=== PATIENT | female | born 1955 | race Caucasian/White ===

== ENCOUNTER 2018-04-06 13:36 | Day surgery (SDC) | payer OTHER, SELFPAY ==
[2018-04-06 14:15] VITALS: BMI 22.7
[2018-04-06] MEDS: SODIUM CHLORIDE 0.9% 1,000 ML 200 ML IV (14:41)
--- NOTE | 2018-04-06 14:42 | SUR.PREOP ---
iv placement per pt request.
[2018-04-06 14:43] VITALS: BP 118/79; PULSE 91; RESP 15; TEMP 36.5; O2SAT 99
--- NOTE | 2018-04-06 15:23 | PM.HP.1 ---
History of Present Illness Date Patient Seen: 04/06/18 Time Patient Seen: 15:23 Chief complaint: [id number] SCREENING COLONOSCOPY Narrative: Very pleasant 62-year-old lady here for her 2nd colonoscopy. She reports her 1st one was about 5 years ago. At that time she was diagnosed with a few benign polyps. She was advised to have a repeat in 5 years and so she is here to do that today. She denies any nausea. She reports the prep went well. She denies any abdominal pain Patient History Medical History Chronic back pain greater than 3 months duration (Chronic 10/09/17) Malignant neoplasm of nipple of right breast in female, estrogen receptor positive (Chronic 10/09/17) Recurrent major depressive disorder, in full remission (Chronic 10/09/17) Anxiety (Chronic 11/27/17) Essential hypertension (Chronic 11/27/17) Gastroesophageal reflux disease without esophagitis (Chronic 11/27/17) History of deep venous thrombosis (Chronic 11/27/17) Migraine without status migrainosus, not intractable (Chronic 11/27/17) Primary insomnia (Chronic 11/27/17) Pure hypercholesterolemia (Chronic 11/27/17) Seasonal allergic rhinitis (Chronic 11/27/17) Uncomplicated opioid dependence (Chronic 11/27/17) Type 2 diabetes mellitus without complication, without long-term current use of insulin (Chronic 11/27/17) Allergic rhinitis (Chronic Unknown) Anxiety (Chronic 2008) Chronic back pain (Chronic 1989) Depression (Chronic 1983) Diabetes (Chronic 2007) GERD (gastroesophageal reflux disease) (Chronic 1994) Herpes (Chronic 1978) Hypercholesterolemia (Chronic Unknown) Hypertension (Chronic 1994) Migraines (Chronic 1977) Vertigo (Chronic 2011) Abnormal Pap smear of cervix (Resolved 1999) Acne (Resolved Unknown) Breast cancer (Resolved 2000) Chickenpox (Resolved Unknown) DVT (deep venous thrombosis) (Resolved 2010) Mumps (Resolved Unknown) Shoulder pain (Resolved 2005) Surgical History History of hip surgery (Resolved 09/2014) Hx of appendectomy (Resolved 01/2008) Hx of breast surgery (Resolved 09/2001) Hx of cholecystectomy (Resolved 02/2010) Hx of shoulder surgery (Resolved 09/2005) Family & Social History Tobacco & Substance use: Smoking Status Never smoker Meds Home Medications Medication Instructions Recorded Confirmed Type [B-D UF 3 MINI PEN NE] #0 10/09/17 02/04/18 History [BIOTIN] #0 10/09/17 02/04/18 History [MILK THISTLE] #0 10/09/17 02/04/18 History [free style lite] TID #0 10/09/17 02/04/18 History alprazolam 0.5 mg PO Q DAY PRN PRN #0 10/09/17 04/06/18 History anastrozole 1 mg PO QDAY #0 10/09/17 04/06/18 History aspirin 81 mg PO QDAY #0 10/09/17 04/06/18 History atorvastatin [Lipitor] 10 mg PO HS #0 10/09/17 04/06/18 History bupropion HCl [Wellbutrin XL] 150 mg PO QDAY #0 10/09/17 04/06/18 History cholecalciferol (vitamin D3) 5,000 unit PO DAILY #0 10/09/17 04/06/18 History cyclobenzaprine 10 mg PO BID PRN #30 tab 10/09/17 04/06/18 Rx exenatide microspheres [Bydureon] 2 mg SQ WEEKLY #0 10/09/17 04/06/18 History fenofibrate nanocrystallized 1 tab PO QDAY #90 tab 10/09/17 04/06/18 Rx [Tricor] ferrous sulfate [Iron (ferrous 325 mg PO QDAY #0 10/09/17 04/06/18 History sulfate)] gabapentin [Neurontin] 600 mg PO DAILY #0 10/09/17 04/06/18 History lisinopril-hydrochlorothiazide 1 tab PO QDAY #0 10/09/17 04/06/18 History metformin 1,000 mg PO BIDCC #0 10/09/17 04/06/18 History multivitamin [Multiple Vitamins] 1 tab PO QDAY #0 10/09/17 04/06/18 History risperidone [Risperdal] 0.5 mg PO BID #180 tab 10/09/17 04/06/18 Rx sumatriptan succinate [Imitrex] 25 mg PO TID #0 10/09/17 04/06/18 History venlafaxine 75 mg PO BID #180 tab 10/09/17 04/06/18 Rx vitamin B complex [B 1 tab PO QDAY #0 02/23/18 08/21/18 History Complex-Vitamin B12] zolpidem 1 tab PO HSP PRN #30 tab 10/09/17 04/06/18 Rx oxycodone 5 mg tablet 5 mg PO TID PRN #90 tab 02/04/18 04/06/18 Rx ondansetron 4 mg SUBLINGUAL Q8HP PRN 04/06/18 04/06/18 History Allergies Allergy/AdvReac Type Severity Reaction Status Date / Time Sulfa (Sulfonamide Allergy Severe Hives Verified 04/06/18 14:06 Antibiotics) [SULFA (SULFONAMIDE ANTIBIOTICS)] niacin [NIACIN] Allergy Intermediate Verified 04/06/18 14:06 naproxen [NAPROXEN] Allergy Mild crusty rash Verified 04/06/18 14:06 Penicillins [PENICILLINS] Allergy Unknown Verified 04/06/18 14:06 sulfamethoxazole Allergy Unknown Verified 04/06/18 14:06 [From BACTRIM] trimethoprim [From BACTRIM] Allergy Unknown Verified 04/06/18 14:06 flu vaccine Allergy Severe tongue Uncoded 04/06/18 14:06 swelling peanuts Allergy Unknown tongue Uncoded 04/06/18 14:06 swelling Review of Systems Review of Systems All systems reviewed & are unremarkable except as noted in HPI and below Exam Vital Signs (past 8 hours): - 04/06/18 14:43 Temperature 97.7 F Pulse Rate 91 H Respiratory Rate 15 Blood Pressure 118/79 Pulse Oximetry 99 Oxygen Delivery Method Room Air Narrative Exam Narrative: Pleasant 62-year-old lady in no obvious distress HEENT: Normocephalic and atraumatic, pupils equal round reactive to light accommodation with anicteric sclera Lungs: Clear to auscultation bilaterally Heart: Regular rate and rhythm without murmur rub or gallop Abdomen: Soft, nontender, active bowel sounds Extremities: Warm well perfused without edema Assessment & Plan Plan: Assessment/Plan Narrative: Pleasant lady with multiple underlying medical problems including diabetes and history of cancer and DVT who presents for a screening colonoscopy due to a personal history of polyps. The above was discussed the risks and benefits of the procedure and the patient has expressed desire to complete it today
[2018-04-06] MEDS: MIDAZOLAM 5 MG/5 ML VIAL IV (15:51)
[2018-04-06] MEDS: fentaNYL 250 MCG/5 ML INJ IV (15:52)
--- NOTE | 2018-04-06 16:01 | PM.OP.1 ---
Operative Date/Time/Diagnoses Date of procedure: 04/06/18 Time of procedure: 16:01 Pre-op diagnosis: Screening Personal history of colon polyps Post-op diagnosis: same Procedure & Clinicians Procedure: Colonoscopy to the cecum Same procedure as scheduled: Yes Indications: Last colonoscopy 5 years ago Surgeon: Lesvia Castro Click Yes if Unassisted: Yes Anesthesia Type: Sedation (Versed 6 mg; fentanyl 200 mcg) Operative Notes Findings: 1. Adequate prep 2. Very tortuous and redundant colon 3. Minimal diverticulosis limited to the sigmoid region 4. No polyps, masses, or AV malformations 5. Grade 1-2 internal hemorrhoids Closure Type: not applicable Specimen(s): none sent Procedure in detail: After obtaining informed consent, the patient was brought to the GI suite and placed in the left lateral decubitus position on the examination table. After placement of appropriate monitors, the patient was given incremental doses of Versed and Fentanyl until an appropriate level of sedation was achieved. A time out was held per SCOAP protocol. A digital rectal examination was performed and did not reveal any masses or obstructing lesions. The colonoscope was gently passed into the patient's anus and the entire colon navigated to the level of the cecum with minimal difficulty. Once in the cecum, the scope was withdrawn being sure to go before and beyond all mucosal folds and prominences and get an excellent examination. The findings are noted above. At the level of the rectal vault, the scope was retroflexed and the internal anal canal was examined. The scope was straightened and air aspirated from the colon. The instrument was removed from the patient's body and the procedure was concluded. The patient was allowed to awaken from sedation without difficulty and taken to the post-anesthesia care unit in good condition. Total sedation time 28 min Total withdrawal time 11 min Complications: none Condition: stable Disposition: PACU Plan for aftercare: 1. Discharge to home 2. Plan for next colonoscopy in 5 years due to the patient's history of polyps
[2018-04-06 16:09] VITALS: BP 146/88; PULSE 93; RESP 12; TEMP 36.6
[2018-04-06 16:13] VITALS: BP 141/80; PULSE 92; RESP 13
[2018-04-06 16:26] VITALS: BP 136/74; PULSE 70; RESP 12; TEMP 36.6; O2SAT 98
== END 2018-04-06 16:30 | disposition home or self-care (01) ==
PROVIDERS: PCP Family Medicine; Visit Provider Surgery
PROC: 0DJD8ZZ Inspection of Lower Intestinal Tract, Via Natural or Artificial Opening Endoscopic (ICD-10-PCS; CPT 45378; principal; 2018-04-06 15:00)
DX: Z86.010 Personal history of colon polyps (principal); K57.30 Diverticulosis of large intestine without perforation or abscess without bleeding; K64.1 Second degree hemorrhoids; I10 Essential (primary) hypertension; E11.9 Type 2 diabetes mellitus without complications; Z79.84 Long term (current) use of oral hypoglycemic drugs
CPT/HCPCS: 45378; 99152; 99153; J2250; J3010

== ENCOUNTER 2019-10-14 17:54 | Emergency (ER) | payer OTHER, SELFPAY ==
--- NOTE | 2019-10-14 17:58 | DI.US.S_ITS ---
PROCEDURE: US PERIPH VENOUS LOW EXTREM LT INDICATIONS: LT CALF PAIN TECHNIQUE: Real-time imaging, as well as color and pulse Doppler interrogation, were performed of the lower extremity deep veins from the inguinal ligament to the popliteal fossa. COMPARISON: None. FINDINGS: The common femoral, femoral and popliteal veins are normally compressible, and free of intraluminal thrombus. Color and pulse Doppler demonstrate normal phasic intraluminal flow. There is normal augmentation response to distal compression maneuver. Miscellaneous: Focus of heteroechogenicity within the left calf measuring 53 x 10 x 30 mm. IMPRESSION: 1. No deep venous thrombosis. 2. Heteroechogenicity within the left calf as above. This could represent hematoma, seroma or appropriate circumstance abscess. Dictated by: Rita Villa M.D. on 10/14/2019 at 18:35 Approved by: Rita Villa M.D. on 10/14/2019 at 18:36
--- NOTE | 2019-10-14 18:31 | PC.NURSE ---
1800 went to get patient from ER Lobby to triage. pt was down in ultrasound. asked certified phlebotomy technician to bring patient back to ER lobby and let staff know
[2019-10-14 18:43] VITALS: BP 179/84; PULSE 79; RESP 16; TEMP 37.1; O2SAT 96; BMI 27.4
[2019-10-14 18:59] LABS: Add Manual Diff / Slide Review NO; Basophils Absolute Auto 100 /uL (0-100); Basophils Percent Auto 0.8 % (0-2); Eosinophils Absolute Auto 100 /uL (0-450); Eosinophils Percent Auto 1.8 % (2-4); Hematocrit 37.3 % (36-46); Hemoglobin 12.6 g/dL (12.0-16.0); Lymphocytes Absolute Auto 2800 /uL (1100-4500); Lymphocytes Percent Auto 34.9 % (25-40); Mean Corpuscular HGB Conc 33.9 % (30-36); Mean Corpuscular Hemoglobin 31.1 PG (26-34); Mean Corpuscular Volume 91.7 fL (80-100); Monocytes Absolute Auto 600 /uL (0-900); Monocytes Percent Auto 7.1 % (3-14); Neutrophils Absolute Auto 4400 /uL (1500-7000); Neutrophils Percent Auto 55.4 % (50-75); Platelet Count 339 X10^3/uL (150-400); Red Blood Cell Count 4.06 X10^6/uL (4.0-5.2); Red Cell Distribution Width 13.6 % (11.6-14.8); White Blood Cell Count 7.9 X10^3/uL (4.5-11.0)
[2019-10-14 19:07] LABS: Prothrombin Time 11.2 SECONDS (10.1-12.7)
[2019-10-14 19:10] LABS: D Dimer 240 ng/mL (<230); PTT Partial Thromboplastin Tim 30 SECONDS (26.4-36.2)
[2019-10-14 19:20] LABS: BUN Creatinine Ratio 28.8 (6-22); Blood Urea Nitrogen 23 mg/dL (7-17); Calcium 9.9 mg/dL (8.4-10.2); Carbon Dioxide 28 mmol/L (22-32); Chloride 104 mmol/L (98-107); Estimated Glomerular Filt Rate > 60.0 mL/min (>60); Glucose 179 mg/dL (80-110); HEMOLYSIS < 15 (0-50); Potassium 3.9 mmol/L (3.4-5.1); Sodium 141 mmol/L (137-145)
--- NOTE | 2019-10-14 19:21 | ED_ITS ---
HPI - Extremity Injury (Lower) <JATIN Bennett - Last Filed: 10/14/19 23:20> General Chief Complaint: Extremity Injury, Lower Stated Complaint: LEFT LEG PAIN HURTS WHEN WALKING POSS BLOOD CLOT Time Seen by Provider: 10/14/19 17:57 Source: patient Mode of arrival: Ambulatory Limitations: no limitations History of Present Illness HPI Narrative: This is a 64 year old female, former smoker, who presents to ED with family member with chief complain of left calf discomfort for 1 week. Patient denies chest pain, breathing difficulty, fever, chills, nausea or vomiting. Patient takes 2 baby aspirin daily for cardiac protectant. Patient denies redness, warmth on affected site. She denies recent trauma, taking daily estrogen, prolonged bed rest/travel, recent surgery. She lives very active and takes [employer], [employer], and dance classes. Patient reports she has history of DVT in right leg about 10 years ago and did not have any other signs and symptoms with this. Patient has been having cold symptoms for last 1 week which has been improving. Related Data Home Medications Medication Instructions Recorded Confirmed [B-D UF 3 MINI PEN NE] #0 10/09/17 04/29/18 [BIOTIN] #0 10/09/17 04/29/18 [MILK THISTLE] #0 10/09/17 04/29/18 [free style lite] TID #0 10/09/17 04/29/18 anastrozole 1 mg PO QDAY #0 10/09/17 04/29/18 aspirin 81 mg PO QDAY #0 10/09/17 04/29/18 atorvastatin [Lipitor] 10 mg PO HS #0 10/09/17 04/29/18 bupropion HCl [Wellbutrin XL] 150 mg PO QDAY #0 10/09/17 04/29/18 cholecalciferol (vitamin D3) 5,000 unit PO DAILY #0 10/09/17 04/29/18 exenatide microspheres [Bydureon] 2 mg SQ WEEKLY #0 10/09/17 04/29/18 ferrous sulfate [Iron (ferrous 325 mg PO QDAY #0 10/09/17 04/29/18 sulfate)] lisinopril-hydrochlorothiazide 1 tab PO QDAY #0 10/09/17 04/29/18 metformin 1,000 mg PO BIDCC #0 10/09/17 04/29/18 multivitamin [Multiple Vitamins] 1 tab PO QDAY #0 10/09/17 04/29/18 sumatriptan succinate [Imitrex] 25 mg PO TID #0 10/09/17 04/29/18 vitamin B complex [B 1 tab PO QDAY #0 10/09/17 04/29/18 Complex-Vitamin B12] ondansetron 4 mg SUBLINGUAL Q8HP PRN 04/06/18 04/29/18 Previous Rx's Medication Instructions Recorded cyclobenzaprine 10 mg PO BID PRN #30 tab 10/09/17 risperidone [Risperdal] 0.5 mg PO BID #180 tab 10/09/17 venlafaxine 75 mg PO BID #180 tab 10/09/17 alprazolam 0.5 mg tablet 0.5 mg PO Q DAY PRN PRN #30 tab 04/29/18 oxycodone 5 mg tablet 5 mg PO TID PRN #90 tab 04/29/18 zolpidem 10 mg tablet 10 mg PO HSP PRN #30 tab 04/29/18 gabapentin 600 mg tablet 600 mg PO DAILY #30 tab 05/31/18 fenofibrate nanocrystallized 145 145 mg PO QDAY #90 tab 12/07/18 mg tablet Allergies Allergy/AdvReac Type Severity Reaction Status Date / Time Sulfa (Sulfonamide Allergy Severe Hives Verified 04/29/18 11:02 Antibiotics) [SULFA (SULFONAMIDE ANTIBIOTICS)] niacin [NIACIN] Allergy Intermediate Verified 04/29/18 11:02 naproxen [NAPROXEN] Allergy Mild crusty rash Verified 04/29/18 11:02 Penicillins [PENICILLINS] Allergy Unknown Verified 04/29/18 11:02 sulfamethoxazole Allergy Unknown Verified 04/29/18 11:02 [From BACTRIM] trimethoprim [From BACTRIM] Allergy Unknown Verified 04/29/18 11:02 flu vaccine Allergy Severe tongue Uncoded 04/29/18 11:02 swelling peanuts Allergy Unknown tongue Uncoded 04/29/18 11:02 swelling Review of Systems <Tucker JATIN Brewster - Last Filed: 10/14/19 23:20> Review of Systems Narrative: General: Denies fever, chills, fatigue, malaise, sweats. HEENT: Denies sinus pain, ear pain, sore throat, difficulty swallowing, dizziness. Respiratory: Denies dyspnea, cough, wheezing, hemoptysis, sputum. Cardiovascular: Denies chest pain, palpitations, orthopnea, edema. Gastrointestinal: Denies nausea, vomiting, abdominal pain, diarrhea, constipation, melena. : Denies dysuria, frequency, incontinence, hematuria, urinary retention. Musculoskeletal: See HPI Skin: Denies rash, skin lesions, or other. Neurologic: Denies weakness, headache, numbness, change in speech, confusion, seizures, incoordination. Psychiatric: No concerning psychosocial issues. 12-point review of systems is negative except for those stated above. Patient History <JATIN Bennett - Last Filed: 10/14/19 23:20> Medical History Abnormal Pap smear of cervix (Resolved 1999) Acne (Resolved Unknown) Allergic rhinitis (Chronic Unknown) Anxiety (Chronic 11/27/17) Anxiety (Chronic 2008) Breast cancer (Resolved 2000) Chickenpox (Resolved Unknown) Chronic back pain (Chronic 1989) Chronic back pain greater than 3 months duration (Chronic 10/09/17) Depression (Chronic 1983) Diabetes (Chronic 2007) DVT (deep venous thrombosis) (Resolved 2010) Essential hypertension (Chronic 11/27/17) Gastroesophageal reflux disease without esophagitis (Chronic 11/27/17) GERD (gastroesophageal reflux disease) (Chronic 1994) Herpes (Chronic 1978) History of deep venous thrombosis (Chronic 11/27/17) Hypercholesterolemia (Chronic Unknown) Hypertension (Chronic 1994) Malignant neoplasm of nipple of right breast in female, estrogen receptor positive (Chronic 10/09/17) Migraine without status migrainosus, not intractable (Chronic 11/27/17) Migraines (Chronic 1977) Mumps (Resolved Unknown) Primary insomnia (Chronic 11/27/17) Pure hypercholesterolemia (Chronic 11/27/17) Recurrent major depressive disorder, in full remission (Chronic 10/09/17) Seasonal allergic rhinitis (Chronic 11/27/17) Shoulder pain (Resolved 2005) Type 2 diabetes mellitus without complication, without long-term current use of insulin (Chronic 11/27/17) Uncomplicated opioid dependence (Chronic 11/27/17) Vertigo (Chronic 2011) Surgical History History of hip surgery (Resolved 09/2014) Hx of appendectomy (Resolved 01/2008) Hx of breast surgery (Resolved 09/2001) Hx of cholecystectomy (Resolved 02/2010) Hx of shoulder surgery (Resolved 09/2005) Family History Father Diabetes mellitus Hypertension Elevated cholesterol Stroke Mother Age: 89 Alzheimers disease Sister Age: 63 Breast cancer Grandfather Heart disease Grandmother Alzheimers disease Grandfather No problems noted. Grandmother Cancer Social History household members: spouse Smoking Status: Former smoker Smoking Status: Never smoker Exam <JATIN Bennett - Last Filed: 10/14/19 23:20> Narrative Exam Narrative: GEN: Alert, oriented x 3, well appearing and nourished, and in no acute distress. Head: Normal cephalic, atraumatic. No scalp or temporal tenderness, palpable mass or rash. EYES: Pupils are equal, round, and reactive to light and accommodation. Extraocular muscles are intact bilaterally. There is no subconjunctival hemorrhage, exudate and sclera non-icteric. ENT: Bilateral auditory canals and tympanic membranes clear. Hearing grossly intact. Nose without bleeding, purulent discharge or deviation. Facial sinuses nontender to palpate. Mucous membrane moist, no mucosal lesion. Throat without slight tonsillar hypertrophy without erythema or exudate. Uvula in midline, airway patent. Neck: Trachea in midline. No JVD, non-tender without lymphadenopathy. No masses or thyroid megaly. Supple, non-tender and no meningeal signs. CARDIAC: Normal regular rate and rhythm without murmurs, gallops, or rubs. No chest wall tenderness. No peripheral edema, cyanosis or pallor. Capillary refill is less than 2 seconds. RESPIRATORY: Lungs are clear to auscultate bilaterally. No cough, wheezes, rales, or rhonchi. No stridor, respiratory distress, increase work of breathing, or accessary muscle used. ABD: Abdomen soft, nontender and non-distended. No guarding or rebound tenderness to palpate. Bowel sounds are normal in all 4 quadrants. There is no palpable masses or organomegaly. SKIN: Warm, dry, normal color for patient. No erythema, lesions or rash over visible areas. BACK: Nontender without deformity or crepitance. No flank tenderness. NEUROLOGICAL: Alert and oriented to place, time and person. Sensation and motor function intact bilaterally. No facial droops, dysphasia. PSYCHIATRIC: Good judgement and reason, without hallucinations, abnormal affect or abnormal behaviors during the examination. Initial Vital Signs Initial Vital Signs: Vital Signs Temperature 98.7 F 10/14/19 18:43 Pulse Rate 79 10/14/19 18:43 Respiratory Rate 16 10/14/19 18:43 Blood Pressure 179/84 H 10/14/19 18:43 Pulse Oximetry 96 10/14/19 18:43 Extrem Left lower extremity: normal to inspection, full ROM, normal capillary refill, lower leg Details: tenderness (Deep palpation in posterior her calf) and no edema; no erythema, no abrasions, no lacerations and no unusual warmth, ankle Details: normal to inspection; no tenderness and no swelling and foot Details: normal capillary refill, normal to inspection, toes with normal ROM, no edema, tendon exam Details: active flexion normal and active extension normal and motor-sensory exam Details: light-touch normal; no tenderness <Yamel Salazar DO - Last Filed: 10/15/19 01:39> Initial Vital Signs Initial Vital Signs: Vital Signs Temperature 98.7 F 10/14/19 18:43 Pulse Rate 79 10/14/19 18:43 Respiratory Rate 16 10/14/19 18:43 Blood Pressure 179/84 H 10/14/19 18:43 Pulse Oximetry 96 10/14/19 18:43 Scores <JATIN Bennett - Last Filed: 10/14/19 23:20> GCS Deepti coma scale eye opening: Spontaneous Deepti coma scale verbal response: Orientated Butler coma scale motor response: Obey commands Butler coma scale total score: 15 Wells' Criteria for DVT Active Cancer (Treatment within 6 months): No Bedridden recently >3 days or major surgery within 4 weeks: No Calf Swelling >3cm compared to other leg: No Collateral (nonvericose) superficial veins present: No Entire leg swollen: No Localized tenderness along the deep vein system: Yes Pitting edema, confined to symtomatic leg: No Paralysis, paresis, or recent plaster immobilization of ext: No Previously documented DVT: Yes Alternative dx to DVT as likely or more likely: Yes Wells' criteria for DVT: 0 Course <JATIN Bennett - Last Filed: 10/14/19 23:20> Orders Ordered: ED Orders 10/14/19 17:58 US perip venous low extrem lt Stat 10/14/19 18:53 Basic Metabolic Panel Stat Complete Blood Count AUTO DIFF Stat D Dimer Stat Partial Thromboplastin Time Stat Prothrombin Time INR Stat Vital Signs Vital signs: Vital Signs - 8 hr 10/14/19 18:43 Temperature 98.7 F Pulse Rate 79 Respiratory Rate 16 Blood Pressure 179/84 H Pulse Oximetry 96 <Yamel Salazar DO - Last Filed: 10/15/19 01:39> Orders Ordered: ED Orders 10/14/19 17:58 [facility] venous low extrem lt Stat 10/14/19 18:53 Basic Metabolic Panel Stat Complete Blood Count AUTO DIFF Stat D Dimer Stat Partial Thromboplastin Time Stat Prothrombin Time INR Stat Vital Signs Vital signs: Vital Signs - 8 hr 10/14/19 18:43 Temperature 98.7 F Pulse Rate 79 Respiratory Rate 16 Blood Pressure 179/84 H Pulse Oximetry 96 MDM - Extremity Injury (Lower) <JATIN Bennett - Last Filed: 10/14/19 23:20> Differential Diagnosis Differential diagnosis: Likely other (DVT, cellulitis, calf strain) Medical Records Attestation: I reviewed the patient's medical records. Lab Data Attestation: I reviewed the patient's lab results. Result diagrams: 10/14/19 18:53 10/14/19 18:53 Labs: Lab Results 10/14/19 10/14/19 10/14/19 Range/Units 18:53 18:53 18:53 WBC 7.9 (4.5-11.0) X10^3/uL RBC 4.06 (4.0-5.2) X10^6/uL Hgb 12.6 (12.0-16.0) g/dL Hct 37.3 (36-46) % MCV 91.7 (80-100) fL MCH 31.1 (26-34) PG MCHC 33.9 (30-36) % RDW 13.6 (11.6-14.8) % Plt Count 339 (150-400) X10^3/uL Neut % (Auto) 55.4 (50-75) % Lymph % (Auto) 34.9 (25-40) % [place] % (Auto) 7.1 (3-14) % Eos % (Auto) 1.8 L (2-4) % Baso % (Auto) 0.8 (0-2) % Neut # (Auto) 4400 (0862-9297) /uL Lymph # (Auto) 2800 (0862-3289) /uL [place] # (Auto) 600 (0-900) /uL Eos # (Auto) 100 (0-450) /uL Baso # (Auto) 100 (0-100) /uL PT 11.2 (10.1-12.7) SECONDS INR 1.0 (0.9-1.3) APTT 30 (26.4-36.2) SECONDS D-Dimer 240 H (<230) ng/mL Sodium 141 (137-145) mmol/L Potassium 3.9 (3.4-5.1) mmol/L Chloride 104 (98-107) mmol/L Carbon Dioxide 28 (22-32) mmol/L BUN 23 H (7-17) mg/dL Creatinine 0.80 (0.52-1.04) mg/dL Estimated GFR > 60.0 (>60) mL/min BUN/Creatinine Ratio 28.8 H (6-22) Glucose 179 H (80-110) mg/dL Calcium 9.9 (8.4-10.2) mg/dL Imaging Data US-LLE duplex: Radiologist's Impression: [address] [address] Ultrasound Report Signed Patient: Eula Carlos [facility]#: [id number] : 5Acct:[id number] Age/Sex: 64 / FDate of Service: 10/14/19 Loc: ED Accession Number: [id number] Procedure: US periph venous low extrem lt Ordering Provider: Charlie Mares D.O. PROCEDURE: US PERIPH VENOUS LOW EXTREM LT INDICATIONS: LT CALF PAIN TECHNIQUE: Real-time imaging, as well as color and pulse Doppler interrogation, were performed of the lower extremity deep veins from the inguinal ligament to the popliteal sheng a. COMPARISON: None. FINDINGS: The common femoral, femoral and popliteal veins are normally c ompressible, and free of intraluminal thrombus. Color and pulse Doppler demonstrate normal phasic intraluminal flow. There is normal augmentation response to distal compression maneuver. Miscellaneous: Focus of heteroechogenicity within the left calf measuring 53 x 10 x 30 mm. IMPRESSION: 1. No deep venous thrombosis. 2. Heteroechogenicity within the left calf as above. This could represent hematoma, seroma or appropriate circumstance abscess. Dictated by: Rita Villa M.D. on 10/14/2019 at 18:35 Approved by: Rita Villa M.D. on 10/14/2019 at 18:36 MDM Narrative Medical decision making narrative: This is 64-year-old female who presents to ED with nontraumatic left calf discomfort who has history of DVT on right lower leg about 10 years ago. Right posterior calf without erythema, warmth or swelling but tender with deep palpation. Patient lives very active life but does not remember increasing activities from her baseline with dance classes, [employer], and Qi-Gong classes. US on left lower extremity does not show DVT. There was heteroechogenicity within the left calf measuring 53 x 10 x 30 mm which could be hematoma, seroma, abscess. Patient does not have leukocytosis. Physical exam i s not consistent with cellulitis, abscess, or hematoma. Chemistry test was unremarkable except mildly dehydration and elevated glucose of 179. D-dimer was 240 which was within normal limits for patient's age. Findings were discussed with the patient and advised close monitor for increasing redness, warmth, fever, pain as return precautions and to follow up with PCP for re-evaluation. Patient verbalized understanding and agreement with treatment plan. <Yamel Salazar, DO - Last Filed: 10/15/19 01:39> Lab Data Labs: Lab Results 10/14/19 10/14/19 10/14/19 Range/Units 18:53 18:53 18:53 WBC 7.9 (4.5-11.0) X10^3/uL RBC 4.06 (4.0-5.2) X10^6/uL Hgb 12.6 (12.0-16.0) g/dL Hct 37.3 (36-46) % MCV 91.7 (80-100) fL MCH 31.1 (26-34) PG MCHC 33.9 (30-36) % RDW 13.6 (11.6-14.8) % Plt Count 339 (150-400) X10^3/uL Neut % (Auto) 55.4 (50-75) % Lymph % (Auto) 34.9 (25-40) % [place] % (Auto) 7.1 (3-14) % Eos % (Auto) 1.8 L (2-4) % Baso % (Auto) 0.8 (0-2) % Neut # (Auto) 4400 (4685-5072) /uL Lymph # (Auto) 2800 (5871-7864) /uL [place] # (Auto) 600 (0-900) /uL Eos # (Auto) 100 (0-450) /uL Baso # (Auto) 100 (0-100) /uL PT 11.2 (10.1-12.7) SECONDS INR 1.0 (0.9-1.3) APTT 30 (26.4-36.2) SECONDS D-Dimer 240 H (<230) ng/mL Sodium 141 (137-145) mmol/L Potassium 3.9 (3.4-5.1) mmol/L Chloride 104 (98-107) mmol/L Carbon Dioxide 28 (22-32) mmol/L BUN 23 H (7-17) mg/dL Creatinine 0.80 (0.52-1.04) mg/dL Estimated GFR > 60.0 (>60) mL/min BUN/Creatinine Ratio 28.8 H (6-22) Glucose 179 H (80-110) mg/dL Calcium 9.9 (8.4-10.2) mg/dL Discharge Plan Departure Patient Disposition: Home Clinical Impression: Pain of left calf Discharge Date/Time: 10/14/19 19:40 Instructions: DI for Leg Pain Activity Restrictions/Additional Instructions: You have been diagnosed with [left posterior calf pain. US test on lower leg did not show DVT. There was heteroechogenicity within left calf measuring 5.x10x30 mm could represent hematoma, seroma or abscess. Your presentation is not consistent with hematoma or abscess. CBC without elevated WBC. Chemistry shows mild dehydration and elevated glucose of 179. D-dimer test was negative for age approriately]. What to do: *Take your medications as directed. You can take [id number] Tylenol and or Motrin as needed for discomfort. *Follow up with your primary care provider in 2-3 days, call for an appointment. Let them know you were seen in the ED and that we asked you to be seen in follow up. *Return to ED if you have any new, worsening, or concerning symptoms, such as [fever, redness, warmth, chest pain, breathing difficulty, unable to tolerate fluids, weakness/tingling/numbness to affected leg or any acute concerns]. Prescriptions: No Action alprazolam 0.5 mg tablet 0.5 mg PO Q DAY PRN PRN (Reason: Anxiety) Qty: 30 RF: 0 oxycodone [Roxicodone] 5 mg tablet 5 mg PO TID PRN (Reason: pain) Qty: 90 RF: 0 zolpidem 10 mg tablet 10 mg PO HSP PRN (Reason: insomnia) Qty: 30 RF: 5 multivitamin [Multiple Vitamins] 1 EACH tablet 1 tab PO QDAY Qty: 0 RF: 0 aspirin 81 MG tablet,delayed release (DR/EC) 81 mg PO QDAY Qty: 0 RF: 0 anastrozole 1 MG tablet 1 mg PO QDAY Qty: 0 RF: 0 atorvastatin [Lipitor] 10 MG tablet 10 mg PO HS Qty: 0 RF: 0 vitamin B complex [B Complex-Vitamin B12] 1 EACH tablet 1 tab PO QDAY Qty: 0 RF: 0 [B-D UF 3 MINI PEN NE] Qty: 0 RF: 0 bupropion HCl [Wellbutrin XL] 150 MG tablet extended release 24 hr 150 mg PO QDAY Qty: 0 RF: 0 exenatide microspheres [Bydureon] 2 MG/0.65 ML pen injector 2 mg SQ WEEKLY Qty: 0 RF: 0 [BIOTIN] Qty: 0 RF: 0 cholecalciferol (vitamin D3) 5,000 UNIT capsule 5,000 unit PO DAILY Qty: 0 RF: 0 ferrous sulfate [Iron (ferrous sulfate)] 325 MG tablet 325 mg PO QDAY Qty: 0 RF: 0 [free style lite] TID Qty: 0 RF: 0 lisinopril-hydrochlorothiazide 10 MG/12.5 MG tablet 1 tab PO QDAY Qty: 0 RF: 0 metformin 1,000 MG tablet 1,000 mg PO BIDCC Qty: 0 RF: 0 [MILK THISTLE] Qty: 0 RF: 0 sumatriptan succinate [Imitrex] 25 MG tablet 25 mg PO TID Qty: 0 RF: 0 venlafaxine 75 MG tablet 75 mg PO BID Qty: 180 RF: 3 risperidone [Risperdal] 0.5 MG tablet 0.5 mg PO BID Qty: 180 RF: 3 cyclobenzaprine 10 MG tablet 10 mg PO BID PRNQty: 30 RF: 3 gabapentin [Neurontin] 600 mg tablet 600 mg PO DAILY Qty: 30 RF: 2 fenofibrate nanocrystallized [Tricor] 145 mg tablet 145 mg PO QDAY Qty: 90 RF: 1 ondansetron 4 MG tablet,disintegrating 4 mg Sublingual Q8HP PRN (Reason: Nausea) RF: 0 Referrals: Arash Fan MD [Physician] -
== END 2019-10-14 19:40 | disposition home or self-care (01) ==
PROVIDERS: Emergency Medicine; Emergency Provider Nurse Practitioner Family; PCP Student in an Organized Health Care Education/Training Program
DX: M79.662 Pain in left lower leg (principal)
CPT/HCPCS: 36415; 80048; 85025; 85379; 85610; 85730; 93971; 99283; 99284

== ENCOUNTER 2020-08-06 11:30 | Emergency (ER) | payer MEDICARE, OTHER, SELFPAY ==
[2020-08-06] VITALS (8 sets, daily range): BP systolic 166–198; BP diastolic 84–95; PULSE 74–85; RESP 16–18; TEMP 37.1; O2SAT 93–97; BMI 27.4
--- NOTE | 2020-08-06 12:20 | ED_ITS ---
HPI - Abdominal Pain <Fatoumata Mcnally PA-C - Last Filed: 08/06/20 17:35> General Chief Complaint: Abdominal Pain Stated Complaint: left side abdominal pain Time Seen by Provider: 08/06/20 12:20 Source: patient Mode of arrival: Ambulatory Limitations: no limitations History of Present Illness HPI narrative: Well-appearing 65-year-old woman presents complaining left lower quadrant pain that has been present for about a month but that worsened a fair amount in the last 3 or 4 days over the weekend. Patient states it came on and felt like ?my diverticulitis? but then it changed she describes it as a sharp pain that seems like it is worse when she is lying flat or in certain positions. She says she has been having normal bowel movements until last week all last week she was having loose stools. She says it was not diarrhea she has been eating and drinking normally for her she has not changed her medications recently. She states she has otherwise been in her normal state of health and denies fevers, chills, nausea, vomiting, flank pain, chest pain, shortness of breath, sore throat, headaches or any other symptoms MD complaint: abdominal pain Onset (ago): month(s) (1) Pain Consistency: constant and intermittent Location: LLQ Severity: moderate Severity scale (1-10): 3 Quality: aching and sharp Radiation: none Migration to: no migration Relieving factors: nothing Exacerbating factors: nothing Associated symptoms: denies other symptoms Related Data Patient : No Home Medications Medication Instructions Recorded Confirmed [B-D UF 3 MINI PEN NE] #0 10/09/17 10/26/19 [BIOTIN] #0 10/09/17 10/26/19 [MILK THISTLE] #0 10/09/17 10/26/19 [free style lite] TID #0 10/09/17 10/26/19 anastrozole 1 mg PO QDAY #0 10/09/17 10/26/19 aspirin 81 mg PO QDAY #0 10/09/17 10/26/19 atorvastatin [Lipitor] 10 mg PO HS #0 10/09/17 10/26/19 bupropion HCl [Wellbutrin XL] 150 mg PO QDAY #0 10/09/17 10/26/19 cholecalciferol (vitamin D3) 5,000 unit PO DAILY #0 10/09/17 10/26/19 exenatide microspheres [Bydureon] 2 mg SQ WEEKLY #0 10/09/17 10/26/19 ferrous sulfate [Iron (ferrous 325 mg PO QDAY #0 10/09/17 10/26/19 sulfate)] lisinopril-hydrochlorothiazide 1 tab PO QDAY #0 10/09/17 10/26/19 metformin 1,000 mg PO BIDCC #0 10/09/17 10/26/19 multivitamin [Multiple Vitamins] 1 tab PO QDAY #0 10/09/17 10/26/19 sumatriptan succinate [Imitrex] 25 mg PO TID #0 10/09/17 10/26/19 vitamin B complex [B 1 tab PO QDAY #0 10/09/17 10/26/19 Complex-Vitamin B12] ondansetron 4 mg SUBLINGUAL Q8HP PRN 04/06/18 10/26/19 Previous Rx's Medication Instructions Recorded cyclobenzaprine 10 mg PO BID PRN #30 tab 10/09/17 risperidone [Risperdal] 0.5 mg PO BID #180 tab 10/09/17 venlafaxine 75 mg PO BID #180 tab 10/09/17 alprazolam 0.5 mg tablet 0.5 mg PO Q DAY PRN PRN #30 tab 04/29/18 oxycodone 5 mg tablet 5 mg PO TID PRN #90 tab 04/29/18 zolpidem 10 mg tablet 10 mg PO HSP PRN #30 tab 04/29/18 gabapentin 600 mg tablet 600 mg PO DAILY #30 tab 05/31/18 fenofibrate nanocrystallized 145 145 mg PO QDAY #90 tab 12/07/18 mg tablet Allergies Allergy/AdvReac Type Severity Reaction Status Date / Time Sulfa (Sulfonamide Allergy Severe Hives Verified 08/06/20 12:09 Antibiotics) [SULFA (SULFONAMIDE ANTIBIOTICS)] niacin [NIACIN] Allergy Intermediate Verified 08/06/20 12:09 naproxen [NAPROXEN] Allergy Mild crusty rash Verified 08/06/20 12:09 Penicillins [PENICILLINS] Allergy Unknown Verified 08/06/20 12:09 sulfamethoxazole Allergy Unknown Verified 08/06/20 12:09 [From BACTRIM] trimethoprim [From BACTRIM] Allergy Unknown Verified 08/06/20 12:09 flu vaccine Allergy Severe tongue Uncoded 04/29/18 11:02 swelling peanuts Allergy Unknown tongue Uncoded 04/29/18 11:02 swelling Review of Systems <Fatoumata Mcnally PA-C - Last Filed: 08/06/20 17:35> Review of Systems Narrative: GENERAL: Denies chills, fatigue, malaise, fever, sweats. HEENT: Denies sinus pain, ear pain, sore throat, difficulty swallowing, dizziness. RESPIRATORY: Denies dyspnea, cough, wheezing, hemoptysis, sputum. CARDIOVASCULAR: Denies chest pain, palpitations, orthopnea, edema, GASTROINTESTINAL: Denies nausea, vomiting, positive for abdominal pain, positive for loose stools, constipation, melena. : Denies dysuria, frequency, incontinence, hematuria, urinary retention. MUSCULOSKELETAL: denies weakness, joint pain, or bony pain SKIN: Denies rash, skin lesions, or other NEUROLOGIC: Denies weakness, headache, numbness, change in speech, confusion, seizures, incoordination. PSYCHIATRIC: No concerning psychosocial issues. 12 point review of systems is negative except for those stated above ROS Unobtainable: All systems reviewed & are unremarkable except as noted in HPI and below Patient History <Fatoumata Mcnally PA-C - Last Filed: 08/06/20 17:35> Medical History Abnormal Pap smear of cervix (1999) Acne (Unknown) Allergic rhinitis (Unknown) Anxiety (11/27/17) Anxiety (2008) Breast cancer (2000) Chickenpox (Unknown) Chronic back pain (1989) Chronic back pain greater than 3 months duration (10/09/17) Depression (1983) Diabetes (2007) DVT (deep venous thrombosis) (2010) Essential hypertension (11/27/17) Gastroesophageal reflux disease without esophagitis (11/27/17) GERD (gastroesophageal reflux disease) (1994) Herpes (1978) History of deep venous thrombosis (11/27/17) Hypercholesterolemia (Unknown) Hypertension (1994) Malignant neoplasm of nipple of right breast in female, estrogen receptor positive (10/09/17) Migraine without status migrainosus, not intractable (11/27/17) Migraines (1977) Mumps (Unknown) Primary insomnia (11/27/17) Pure hypercholesterolemia (11/27/17) Recurrent major depressive disorder, in full remission (10/09/17) Seasonal allergic rhinitis (11/27/17) Shoulder pain (2005) Type 2 diabetes mellitus without complication, without long-term current use of insulin (11/27/17) Uncomplicated opioid dependence (11/27/17) Vertigo (2011) Surgical History History of hip surgery (09/2014) Hx of appendectomy (01/2008) Hx of breast surgery (09/2001) Hx of cholecystectomy (02/2010) Hx of shoulder surgery (09/2005) Family History Father Diabetes mellitus Hypertension Elevated cholesterol Stroke Depression Mother Age: 90 Alzheimers disease Depression Dementia Sister Age: 63 Breast cancer Grandfather Heart disease Grandmother Alzheimers disease Grandfather No problems noted. Grandmother Cancer Social History household members: spouse Smoking Status: Former smoker Smoking Status: Former smoker alcohol intake frequency: holidays/special occasions only Substance Use Type: marijuana Exam <Fatoumata Mcnally PA-C - Last Filed: 08/06/20 17:35> Narrative Exam Narrative: GENERAL: 65 year old patient appears stated age. Well-nourished, well-developed patient, in mild distress. HEAD: Atraumatic. Normocephalic. EYES: Pupils equal round and reactive. Extraocular motions intact. No scleral icterus. No injection or drainage. ENT: Nose without bleeding, purulent drainage. Throat without erythema, tonsillar hypertrophy or exudate. Airway patent. NECK: Trachea midline. Non tender CARDIOVASCULAR: Regular rate and rhythm without murmurs, gallops, or rubs. RESPIRATORY: Clear to auscultation. Breath sounds equal bilaterally. No wheezes, rales, or rhonchi. GASTROINTESTINAL: Abdomen soft, there is tenderness over the left lower quadrant there is a palpable mass lateral to the umbilicus on the left, otherwise she is non-tender, nondistended, no CVA tenderness. EXTREMITIES: No edema or joint tenderness. BACK: Nontender without deformity or crepitance. No flank tenderness. NEURO: AOx3. SKIN: No rash or erythema of visible areas Initial Vital Signs Initial Vital Signs: Vital Signs Temperature 98.7 F 08/06/20 12:00 Pulse Rate 85 08/06/20 12:00 Respiratory Rate 18 08/06/20 12:00 Blood Pressure 195/95 H 08/06/20 12:00 Pulse Oximetry 97 08/06/20 12:00 <Yamel Salazar DO - Last Filed: 08/08/20 09:26> Initial Vital Signs Initial Vital Signs: Vital Signs Temperature 98.7 F 08/06/20 12:00 Pulse Rate 85 08/06/20 12:00 Respiratory Rate 18 08/06/20 12:00 Blood Pressure 195/95 H 08/06/20 12:00 Pulse Oximetry 97 08/06/20 12:00 Scores <ELYSIA Carbajal Last Filed: 08/06/20 17:35> GCS Arboles coma scale eye opening: Spontaneous Deepti coma scale verbal response: Orientated Deepti coma scale motor response: Obey commands Arboles coma scale total score: 15 Course <ELYSIA Carbajal Last Filed: 08/06/20 17:35> Orders Ordered: ED Orders 08/06/20 12:35 Urinalysis and Microscopic Stat 08/06/20 12:40 Complete Blood Count AUTO DIFF Stat Comprehensive Metabolic Panel Stat Lipase Stat 08/06/20 14:10 CT abdomen pelvis w con Stat Vital Signs Vital signs: Vital Signs - 8 hr 08/06/20 12:00 08/06/20 13:06 08/06/20 13:30 Temperature 98.7 F Pulse Rate 85 74 80 Respiratory Rate 18 Blood Pressure 195/95 H 166/87 H Pulse Oximetry 97 95 93 08/06/20 14:00 08/06/20 14:38 08/06/20 14:39 Temperature Pulse Rate 78 80 80 Respiratory Rate Blood Pressure 198/87 H Pulse Oximetry 95 97 96 08/06/20 15:00 08/06/20 15:30 Temperature Pulse Rate 76 76 Respiratory Rate 16 Blood Pressure 182/85 H 180/84 H Pulse Oximetry 96 95 <DO Hector Sheridan Last Filed: 08/08/20 09:26> Orders Ordered: ED Orders 08/06/20 12:35 Urinalysis and Microscopic Stat 08/06/20 12:40 Complete Blood Count AUTO DIFF Stat Comprehensive Metabolic Panel Stat Lipase Stat 08/06/20 14:10 CT abdomen pelvis w con Stat Vital Signs Vital signs: Vital Signs - 8 hr 08/06/20 12:00 08/06/20 13:06 08/06/20 13:30 Temperature 98.7 F Pulse Rate 85 74 80 Respiratory Rate 18 Blood Pressure 195/95 H 166/87 H Pulse Oximetry 97 95 93 08/06/20 14:00 08/06/20 14:38 08/06/20 14:39 Temperature Pulse Rate 78 80 80 Respiratory Rate Blood Pressure 198/87 H Pulse Oximetry 95 97 96 08/06/20 15:00 08/06/20 15:30 Temperature Pulse Rate 76 76 Respiratory Rate 16 Blood Pressure 182/85 H 180/84 H Pulse Oximetry 96 95 MDM - Abdominal Pain <Fatoumata Mcnally PA-C - Last Filed: 08/06/20 17:35> Differential Diagnosis Differential diagnosis: Likely abdominal pain, constipation, diverticulitis, gastroenteritis, small bowel obstruction and other (mass, adhesion, muscle strain) Medical Records Attestation: I reviewed the patient's medical records. Lab Data Attestation: I reviewed the patient's lab results. Result diagrams: 08/06/20 12:40 08/06/20 12:40 Labs: Lab Results 08/06/20 08/06/20 08/06/20 Range/Units 12:35 12:40 12:40 WBC 6.1 (4.5-11.0) X10^3/uL RBC 4.42 (4.0-5.2) X10^6/uL Hgb 13.6 (12.0-16.0) g/dL Hct 40.3 (36-46) % MCV 91.1 (80-100) fL MCH 30.7 (26-34) PG MCHC 33.6 (30-36) % RDW 13.9 (11.6-14.8) % Plt Count 298 (150-400) X10^3/uL Neut % (Auto) 53.5 (50-75) % Lymph % (Auto) 35.7 (25-40) % Faulkner % (Auto) 8.6 (3-14) % Eos % (Auto) 1.4 L (2-4) % Baso % (Auto) 0.8 (0-2) % Neut # (Auto) 3200 (2979-3087) /uL Lymph # (Auto) 2200 (3921-5999) /uL Faulkner # (Auto) 500 (0-900) /uL Eos # (Auto) 100 (0-450) /uL Baso # (Auto) 0 (0-100) /uL Sodium 138 (137-145) mmol/L Potassium 4.0 (3.4-5.1) mmol/L Chloride 103 (98-107) mmol/L Carbon Dioxide 30 (22-32) mmol/L BUN 15 (7-17) mg/dL Creatinine 0.79 (0.52-1.04) mg/dL Estimated GFR > 60.0 (>60) mL/min BUN/Creatinine Ratio 19.0 (6-22) Glucose 130 H (80-110) mg/dL Calcium 10.1 (8.4-10.2) mg/dL Total Bilirubin 0.4 (0.2-1.3) mg/dL AST 31 (14-36) IU/L ALT 23 (<35) IU/L Alkaline Phosphatase 103 (38-126) U/L Total Protein 7.5 (6.3-8.2) g/dL Albumin 4.5 (3.5-5.0) g/dL Globulin 3.0 (1.7-4.1) g/dL Albumin/Globulin Ratio 1.5 (1.0-2.8) Lipase 127 (23-300) U/L Urine Color Yellow Urine Appearance Clear Urine pH 5.0 (4.5-8.0) Ur Specific [place] 1.020 (1.000-1.035) Urine Protein Negative (Negative) Urine Glucose (UA) 2+ H (Negative) g/dL Urine Ketones Negative (NEGATIVE) Urine Occult Blood Negative (Negative) Urine Nitrate Negative (Negative) Urine Bilirubin Negative (NEGATIVE) Urine Urobilinogen 0.2 (0.2) E.U./dL Ur Leukocyte Esterase Negative (NEGATIVE) Urine RBC None seen (0-5/HPF) Urine WBC None seen (0-5/HPF) Calcium Oxalate Crystal Moderate H Urine Bacteria None seen (None) Ur Culture Indicated? Cult not indicated Imaging Data CT scan - abdomen/pelvis: Attestation: I personally reviewed and interpreted this imaging study as follows: Radiologist's Impression: [address] 98 221CT Scan ReportSigned Patient: Eula Cho [facility]#: [id number]: 5Acct:[id number]/Sex: 65 / FDate of Service: 08/06/20Loc: EDAccession Number: [id number] Procedure: CT abdomen pelvis w con Ordering Provider: Fatoumata Mcnally P.A-C PROCEDURE: CT ABDOMEN PELVIS W CON INDICATIONS: left flank Pain x 1 month TECHNIQUE: After the administration of intravenous contrast, 5 mm thick sections acquired from the diaphragm to the symphysis. 5 mm coronal and sagittal reformats were acquired. For radiation dose reduction, the following was used: automated exposure control, adjustment of mA and/or kV according to patient size. COMPARISON: None. FINDINGS: Image quality: Excellent. ABDOMEN: Lung bases: 5 x 3 millimeter nodular density involving lateral aspect of left lower lung field is seen series 3, image 8. Heart size is enlarged, no pericardial effusion. Solid organs: Liver is normal in size . Hepatic steatosis is seen. Gallbladder is surgically absent. Biliary system is non dilated. Pancreas enhances normally. Spleen is normal in size and enhancement. No adrenal nodules. Kidneys demonstrate normal size and enhancement, without hydronephrosis. 1.8 centimeter mid to lower pole left renal cyst is seen. No perinephric fat stranding. Peritoneum and bowel: Bowel loops demonstrate normal wall thickness and caliber. No free fluid or air. Nodes and vessels: No retroperitoneal or mesenteric adenopathy by size criteria. Aorta and inferior vena cava are normal in size. Miscellaneous: No ventral hernias. PELVIS: Genitourinary: Bladder wall thickness is normal. Miscellaneous: No inguinal hernias or adenopathy. Bones: No suspicious bony lesions. Patient is status post left total hip arthroplasty. No vertebral body compression fractures. Degenerative disc disease throughout lower thoracic and lumbar spine is seen. IMPRESSION: 1. No renal stone or hydronephrosis. Left renal cyst as above. No gross abnormalities are seen in bilateral ureters and urinary bladder. 2. No bowel obstruction. No abnormal bowel wall thickening. No free fluid or free air. 3. Hepatic steatosis. Prior cholecystectomy. 4. 5 x 3 mm oval nodule is seen in left lower lobe which may represent benign process. Follow-up CT study in 12 months is recommended for evaluation of stability. Dictated by: Scot Voss M.D. on 08/06/2020 at 14:59 Approved by: Scot Voss M.D. on 08/06/2020 at 15:03 MDM Narrative Medical decision making narrative: This is a well-appearing 65-year-old woman who presents with complaints of left lower quadrant pain that has been present for a month but worsened over the weekend. She does have a history of breast cancer, she has had appendectomy, cholecystectomy, breast cancer. She has a left lower quadrant tenderness on exam and a palpable mass. Patient did see her primary care provider earlier this month for her symptoms which she reports have worsened in the last 3 or 4 days. She is nontoxic with unremarkable vitals however given her worsening pain and she stool change in the last week as well as the mass noted on exam after discussion with attending physician is CT scan is pursued for further evaluation. This comes back unremarkable although she is noted to have incidentally a renal cyst and also a pulmonary nodule. Patient is advised to follow up and get her colonoscopy which she anticipates having in 2020 as soon as possible for further evaluation. She is also advised to follow- up with her primary care provider and is provided with emergency return precautions. I have low suspicion for an acute abdominal pelvic process that requires further evaluation workup in the emergency department today given her unremarkable labs and CT scan. <Yamel Salazar, DO - Last Filed: 08/08/20 09:26> Lab Data Labs: Lab Results 08/06/20 08/06/20 08/06/20 Range/Units 12:35 12:40 12:40 WBC 6.1 (4.5-11.0) X10^3/uL RBC 4.42 (4.0-5.2) X10^6/uL Hgb 13.6 (12.0-16.0) g/dL Hct 40.3 (36-46) % MCV 91.1 (80-100) fL MCH 30.7 (26-34) PG MCHC 33.6 (30-36) % RDW 13.9 (11.6-14.8) % Plt Count 298 (150-400) X10^3/uL Neut % (Auto) 53.5 (50-75) % Lymph % (Auto) 35.7 (25-40) % Faulkner % (Auto) 8.6 (3-14) % Eos % (Auto) 1.4 L (2-4) % Baso % (Auto) 0.8 (0-2) % Neut # (Auto) 3200 (7185-1825) /uL Lymph # (Auto) 2200 (5933-7035) /uL Faulkner # (Auto) 500 (0-900) /uL Eos # (Auto) 100 (0-450) /uL Baso # (Auto) 0 (0-100) /uL Sodium 138 (137-145) mmol/L Potassium 4.0 (3.4-5.1) mmol/L Chloride 103 (98-107) mmol/L Carbon Dioxide 30 (22-32) mmol/L BUN 15 (7-17) mg/dL Creatinine 0.79 (0.52-1.04) mg/dL Estimated GFR > 60.0 (>60) mL/min BUN/Creatinine Ratio 19.0 (6-22) Glucose 130 H (80-110) mg/dL Calcium 10.1 (8.4-10.2) mg/dL Total Bilirubin 0.4 (0.2-1.3) mg/dL AST 31 (14-36) IU/L ALT 23 (<35) IU/L Alkaline Phosphatase 103 (38-126) U/L Total Protein 7.5 (6.3-8.2) g/dL Albumin 4.5 (3.5-5.0) g/dL Globulin 3.0 (1.7-4.1) g/dL Albumin/Globulin Ratio 1.5 (1.0-2.8) Lipase 127 (23-300) U/L Urine Color Yellow Urine Appearance Clear Urine pH 5.0 (4.5-8.0) Ur Specific [place] 1.020 (1.000-1.035) Urine Protein Negative (Negative) Urine Glucose (UA) 2+ H (Negative) g/dL Urine Ketones Negative (NEGATIVE) Urine Occult Blood Negative (Negative) Urine Nitrate Negative (Negative) Urine Bilirubin Negative (NEGATIVE) Urine Urobilinogen 0.2 (0.2) E.U./dL Ur Leukocyte Esterase Negative (NEGATIVE) Urine RBC None seen (0-5/HPF) Urine WBC None seen (0-5/HPF) Calcium Oxalate Crystal Moderate H Urine Bacteria None seen (None) Ur Culture Indicated? Cult not indicated Discharge Plan Departure Patient Disposition: Home Clinical Impression: Abdominal pain, left lower quadrant, Loose stools Activity Restrictions/Additional Instructions: Thank you for allowing us to be part of your care in the emergency department today. There is no evidence of an emergent or life threatening illness at this time, but follow up with your doctor in 1-2 days is recommended nonetheless to continue to rule out serious underlying causes of your symptoms. Please call the office for an appointment. Please return to the Emergency Department for any worsening or persistent symptoms. Please take medications as directed. The CT scan that we performed today at did not show anything that would clearly explained that pain the been experiencing I do recommend you follow-up with your primary care provider, I also recommend that you get scheduled for your colonoscopy soon for further evaluation. Please follow-up with your primary care provider and do not hesitate to seek medical care return to the emergency department if you do feel a give new or worsening symptoms including fevers, chills, worsening or severe abdominal pain, loss of appetite, inability to have bowel movements, severe diarrhea, or any other symptoms of concern to you. I would talk to primary care provider about options for pain since there is not a clear cause of your symptoms today and your pain seems to be mild in the emergency department I have not prescribed any pain medicine for you can certainly take Tylenol as needed. To discuss with their primary care provider some of the CT findings including a small renal cyst noted on the left, and you also have a 5 x 3 mm nodule in your left lower lung lobe which may be benign but you may want to have a follow-up CT scan done in 12 months to evaluate for stability and make sure that this is not changing over time. These were an incidental finding on your CT scan and I do not think that either of these explain the pain you have experiencing. Prescriptions: No Action alprazolam 0.5 mg tablet 0.5 mg PO Q DAY PRN PRN (Reason: Anxiety) Qty: 30 RF: 0 oxycodone [Roxicodone] 5 mg tablet 5 mg PO TID PRN (Reason: pain) Qty: 90 RF: 0 zolpidem 10 mg tablet 10 mg PO HSP PRN (Reason: insomnia) Qty: 30 RF: 5 multivitamin [Multiple Vitamins] 1 EACH tablet 1 tab PO QDAY Qty: 0 RF: 0 aspirin 81 MG tablet,delayed release (DR/EC) 81 mg PO QDAY Qty: 0 RF: 0 anastrozole 1 MG tablet 1 mg PO QDAY Qty: 0 RF: 0 atorvastatin [Lipitor] 10 MG tablet 10 mg PO HS Qty: 0 RF: 0 vitamin B complex [B Complex-Vitamin B12] 1 EACH tablet 1 tab PO QDAY Qty: 0 RF: 0 [B-D UF 3 MINI PEN NE] Qty: 0 RF: 0 bupropion HCl [Wellbutrin XL] 150 MG tablet extended release 24 hr 150 mg PO QDAY Qty: 0 RF: 0 exenatide microspheres [Bydureon] 2 MG/0.65 ML pen injector 2 mg SQ WEEKLY Qty: 0 RF: 0 [BIOTIN] Qty: 0 RF: 0 cholecalciferol (vitamin D3) 5,000 UNIT capsule 5,000 unit PO DAILY Qty: 0 RF: 0 ferrous sulfate [Iron (ferrous sulfate)] 325 MG tablet 325 mg PO QDAY Qty: 0 RF: 0 [free style lite] TID Qty: 0 RF: 0 lisinopril-hydrochlorothiazide 10 MG/12.5 MG tablet 1 tab PO QDAY Qty: 0 RF: 0 metformin 1,000 MG tablet 1,000 mg PO BIDCC Qty: 0 RF: 0 [MILK THISTLE] Qty: 0 RF: 0 sumatriptan succinate [Imitrex] 25 MG tablet 25 mg PO TID Qty: 0 RF: 0 venlafaxine 75 MG tablet 75 mg PO BID Qty: 180 RF: 3 risperidone [Risperdal] 0.5 MG tablet 0.5 mg PO BID Qty: 180 RF: 3 cyclobenzaprine 10 MG tablet 10 mg PO BID PRNQty: 30 RF: 3 gabapentin [Neurontin] 600 mg tablet 600 mg PO DAILY Qty: 30 RF: 2 fenofibrate nanocrystallized [Tricor] 145 mg tablet 145 mg PO QDAY Qty: 90 RF: 1 ondansetron 4 MG tablet,disintegrating 4 mg Sublingual Q8HP PRN (Reason: Nausea) RF: 0 Referrals: Arash Fan MD [Primary Care Provider] - <Yamel Salazar DO - Last Filed: 08/08/20 09:26> Cosign ED Attending Cosignature Attestation: I was immediately available in the department for consultation. Documentation has been reviewed.
[2020-08-06 12:51] LABS: Add Manual Diff / Slide Review NO; Basophils Absolute Auto 0 /uL (0-100); Basophils Percent Auto 0.8 % (0-2); Eosinophils Absolute Auto 100 /uL (0-450); Eosinophils Percent Auto 1.4 % (2-4); Hematocrit 40.3 % (36-46); Hemoglobin 13.6 g/dL (12.0-16.0); Lymphocytes Absolute Auto 2200 /uL (1100-4500); Lymphocytes Percent Auto 35.7 % (25-40); Mean Corpuscular HGB Conc 33.6 % (30-36); Mean Corpuscular Hemoglobin 30.7 PG (26-34); Mean Corpuscular Volume 91.1 fL (80-100); Monocytes Absolute Auto 500 /uL (0-900); Monocytes Percent Auto 8.6 % (3-14); Neutrophils Absolute Auto 3200 /uL (1500-7000); Neutrophils Percent Auto 53.5 % (50-75); Platelet Count 298 X10^3/uL (150-400); Red Blood Cell Count 4.42 X10^6/uL (4.0-5.2); Red Cell Distribution Width 13.9 % (11.6-14.8); White Blood Cell Count 6.1 X10^3/uL (4.5-11.0)
[2020-08-06 13:05] LABS: Alanine Aminotransferase 23 IU/L (<35); Albumin 4.5 g/dL (3.5-5.0); Albumin Globulin Ratio 1.5 (1.0-2.8); Alkaline Phosphatase 103 U/L (38-126); Aspartate Aminotransferase 31 IU/L (14-36); Bilirubin Total 0.4 mg/dL (0.2-1.3); Blood Urea Nitrogen 15 mg/dL (7-17); Calcium 10.1 mg/dL (8.4-10.2); Carbon Dioxide 30 mmol/L (22-32); Chloride 103 mmol/L (98-107); Estimated Glomerular Filt Rate > 60.0 mL/min (>60); Glucose 130 mg/dL (80-110); HEMOLYSIS < 15 (0-50); Lipase 127 U/L (23-300); Sodium 138 mmol/L (137-145); Total Protein 7.5 g/dL (6.3-8.2)
[2020-08-06 13:39] LABS: Bacteria Urine None Seen; RBC Urine None Seen (0-5/HPF); WBC Urine None Seen (0-5/HPF)
[2020-08-06 13:41] LABS: Appearance Urine UA CLEAR; Bilirubin Urine UA NEGATIVE (NEGATIVE); Color Urine UA YELLOW; Glucose Urine UA 2+ g/dL (Negative); Ketones Urine UA NEGATIVE (NEGATIVE); Leukocyte Esterase Urine UA NEGATIVE (NEGATIVE); Nitrite Urine UA NEGATIVE (Negative); Occult Blood Urine UA NEGATIVE (Negative); Protein Urine UA NEGATIVE (Negative); Urobilinogen Urine UA 0.2 E.U./dL (0.2)
[2020-08-06 13:50] LABS: Calcium Oxalate Crystals Urine Moderate; Culture Indicated Urine Cult Not Indicated
--- NOTE | 2020-08-06 14:10 | DI.CT.S_ITS ---
PROCEDURE: CT ABDOMEN PELVIS W CON INDICATIONS: left flank Pain x 1 month TECHNIQUE: After the administration of intravenous contrast, 5 mm thick sections acquired from the diaphragm to the symphysis. 5 mm coronal and sagittal reformats were acquired. For radiation dose reduction, the following was used: automated exposure control, adjustment of mA and/or kV according to patient size. COMPARISON: None. FINDINGS: Image quality: Excellent. ABDOMEN: Lung bases: 5 x 3 millimeter nodular density involving lateral aspect of left lower lung field is seen series 3, image 8. Heart size is enlarged, no pericardial effusion. Solid organs: Liver is normal in size . Hepatic steatosis is seen. Gallbladder is surgically absent. Biliary system is non dilated. Pancreas enhances normally. Spleen is normal in size and enhancement. No adrenal nodules. Kidneys demonstrate normal size and enhancement, without hydronephrosis. 1.8 centimeter mid to lower pole left renal cyst is seen. No perinephric fat stranding. Peritoneum and bowel: Bowel loops demonstrate normal wall thickness and caliber. No free fluid or air. Nodes and vessels: No retroperitoneal or mesenteric adenopathy by size criteria. Aorta and inferior vena cava are normal in size. Miscellaneous: No ventral hernias. PELVIS: Genitourinary: Bladder wall thickness is normal. Miscellaneous: No inguinal hernias or adenopathy. Bones: No suspicious bony lesions. Patient is status post left total hip arthroplasty. No vertebral body compression fractures. Degenerative disc disease throughout lower thoracic and lumbar spine is seen. IMPRESSION: 1. No renal stone or hydronephrosis. Left renal cyst as above. No gross abnormalities are seen in bilateral ureters and urinary bladder. 2. No bowel obstruction. No abnormal bowel wall thickening. No free fluid or free air. 3. Hepatic steatosis. Prior cholecystectomy. 4. 5 x 3 mm oval nodule is seen in left lower lobe which may represent benign process. Follow-up CT study in 12 months is recommended for evaluation of stability. Dictated by: Scot Voss M.D. on 08/06/2020 at 14:59 Approved by: Scot Voss M.D. on 08/06/2020 at 15:03
== END 2020-08-06 15:45 | disposition home or self-care (01) ==
PROVIDERS: Emergency Provider Student in an Organized Health Care Education/Training Program; PCP Family Medicine
DX: R10.32 Left lower quadrant pain (principal); R19.7 Diarrhea, unspecified
CPT/HCPCS: 36415; 74177; 80053; 81001; 83690; 85025; 99283; Q9967

== ENCOUNTER → 2022-09-04 10:52 | Outpatient (CLI) | payer MEDICARE, OTHER, SELFPAY ==
--- NOTE | 2022-09-04 | DI.US.S_ITS ---
PROCEDURE: US ABDOMEN LIMITED INDICATIONS: CONCERN FOR INFECTIOUS POCKET/ABSCESS VS TUMOR TECHNIQUE: Real-time focused scanning was performed of the abdomen, with image documentation. COMPARISON: None. FINDINGS: No significant sonographic abnormality is seen in the patient indicated area of clinical concern at the midline lower back. Lumbar spinous processes are partially visualized. IMPRESSION: No significant sonographic abnormality in the patient indicated area of concern at the lower back. Approved by: Jeyson Hager M.D. on 09/04/2022 at 14:47
== END ==
PROVIDERS: PCP Nurse Practitioner Family; Referring Provider Nurse Practitioner Family; Visit Provider Nurse Practitioner Family
DX: M54.6 Pain in thoracic spine (principal); G95.89 Other specified diseases of spinal cord; Z85.3 Personal history of malignant neoplasm of breast
CPT/HCPCS: 76705

== ENCOUNTER 2022-10-27 14:13 | Emergency (ER) | payer MEDICARE, OTHER, SELFPAY ==
[2022-10-27 14:16] VITALS: BP 130/60; PULSE 85; RESP 16; TEMP 36.1; O2SAT 96; BMI 25.7
--- NOTE | 2022-10-27 14:24 | DI.RAD.S_ITS ---
PROCEDURE: XR CHEST 1V INDICATIONS: chest pain TECHNIQUE: One view of the chest was acquired. COMPARISON: None. FINDINGS: Surgical changes and devices: Surgical clips project over the right hemithorax. Lungs and pleura: Lungs are clear. No pleural effusions or pneumothorax. Mediastinum: Mediastinal contours appear normal. Heart size is normal. Bones and chest wall: No suspicious bony lesions. Overlying soft tissues appear unremarkable. IMPRESSION: No acute cardiopulmonary process. Dictated by: Scooter Tipton M.D. on 10/27/2022 at 15:20 Approved by: Scooter Tiptno M.D. on 10/27/2022 at 15:21
[2022-10-27 14:39] LABS: Add Manual Diff / Slide Review NO; Basophils Absolute Auto 100 /uL (0-100); Basophils Percent Auto 0.7 % (0-2); Eosinophils Absolute Auto 100 /uL (0-450); Eosinophils Percent Auto 0.9 % (2-4); Hematocrit 41.8 % (36-46); Lymphocytes Absolute Auto 2500 /uL (1100-4500); Lymphocytes Percent Auto 26.5 % (25-40); Mean Corpuscular HGB Conc 33.4 % (30-36); Mean Corpuscular Hemoglobin 29.8 PG (26-34); Mean Corpuscular Volume 89.2 fL (80-100); Monocytes Absolute Auto 700 /uL (0-900); Monocytes Percent Auto 7.9 % (3-14); Neutrophils Absolute Auto 5900 /uL (1500-7000); Platelet Count 263 X10^3/uL (150-400); Red Blood Cell Count 4.69 X10^6/uL (4.0-5.2); Red Cell Distribution Width 13.8 % (11.6-14.8); White Blood Cell Count 9.3 X10^3/uL (4.5-11.0)
[2022-10-27 14:44] LABS: Prothrombin Time 10.9 SECONDS (10.1-12.7)
[2022-10-27 14:47] LABS: PTT Partial Thromboplastin Tim 29 SECONDS (26-36)
[2022-10-27 14:54] LABS: Alanine Aminotransferase 22 IU/L (<35); Albumin 4.5 g/dL (3.5-5.0); Albumin Globulin Ratio 1.3 (1.0-2.8); Alkaline Phosphatase 93 U/L (38-126); Aspartate Aminotransferase 22 IU/L (14-36); BUN Creatinine Ratio 22.9 (6-22); Bilirubin Total 0.4 mg/dL (0.2-1.3); Blood Urea Nitrogen 25 mg/dL (7-17); Calcium 10.5 mg/dL (8.4-10.2); Carbon Dioxide 30 mmol/L (22-32); Chloride 96 mmol/L (98-107); Creatine Kinase 67 U/L (30-135); Estimated Glomerular Filt Rate 56 mL/min (>60); Globulin 3.4 g/dL (1.7-4.1); Glucose 170 mg/dL (80-110); HEMOLYSIS < 15 (0-50); Lipase 109 U/L (23-300); Magnesium 1.8 mg/dL (1.6-2.3); Potassium 4.2 mmol/L (3.4-5.1); Sodium 136 mmol/L (137-145); Total Protein 7.9 g/dL (6.3-8.2)
[2022-10-27 15:05] LABS: Troponin I < 0.012 ng/mL (0.01-0.034)
[2022-10-27 18:14] VITALS: PULSE 84; O2SAT 93
[2022-10-27 18:16] VITALS: BP 128/60; PULSE 86; RESP 16; O2SAT 97
[2022-10-27 18:30] VITALS: BP 126/60; PULSE 81; O2SAT 95
--- NOTE | 2022-10-27 18:58 | ED_ITS ---
HPI - Syncope General Chief Complaint: Syncope Stated Complaint: syncopal fall t-1 Fx L fibula Time Seen by Provider: 10/27/22 18:56 Mode of arrival: Wheelchair History of Present Illness HPI narrative: Patient is a 67-year-old female history of insulin-dependent diabetes, hypertension hyperlipidemia presenting today after a syncopal episode last night. She said she stood up from her recliner to fascia dizzy lightheaded fell injuring her right ankle. She was seen evaluated on [place] where she was found have a distal fibular fracture put in a walking boot. She also injured her left toe. Due to the syncopal episode she was sent to the emergency de partment for further workup. She denies any fever chills. Chest pain palpitations shortness breath no abdominal pain nausea vomiting no weakness numbness tingling or speech difficulty. She is not hit her head lose consciousness. She is no neck pain. She is not on any antiplatelet or anticoagulation medication. She does take metoprolol but she has been out of it for the last 5 days. Patient reportedly takes oxycodone 5 mg daily and alprazolam 0.25 mg 3 times daily. Related Data Home Medications Medication Instructions Recorded Confirmed [B-D UF 3 MINI PEN NE] ##0 10/09/17 10/26/19 [BIOTIN] ##0 10/09/17 10/26/19 [MILK THISTLE] ##0 10/09/17 10/26/19 [free style lite] TID ##0 10/09/17 10/26/19 anastrozole 1 mg tablet 1 mg PO QDAY ##0 10/09/17 10/26/19 aspirin 81 mg tablet,delayed 81 mg PO QDAY ##0 10/09/17 10/26/19 release atorvastatin 10 mg tablet (Lipitor) 10 mg PO HS ##0 10/09/17 10/26/19 bupropion HCl 150 mg 24 hr tablet, 150 mg PO QDAY ##0 10/09/17 10/26/19 extended release (Wellbutrin XL) cholecalciferol (vitamin D3) 125 5,000 unit PO DAILY ##0 10/09/17 10/26/19 mcg (5,000 unit) capsule exenatide microspheres 2 mg/0.65 2 mg SQ WEEKLY ##0 10/09/17 10/26/19 mL subcutaneous pen injector ([employer]) ferrous sulfate 325 mg (65 mg 325 mg PO QDAY ##0 10/09/17 10/26/19 iron) tablet (Iron (ferrous sulfate)) lisinopril 10 1 tab PO QDAY ##0 10/09/17 10/26/19 mg-hydrochlorothiazide 12.5 mg tablet metformin 1,000 mg tablet 1,000 mg PO BIDCC ##0 10/09/17 10/26/19 multivitamin (Multiple Vitamins 1 tab PO QDAY ##0 10/09/17 10/26/19 tablet) sumatriptan succinate 25 mg tablet 25 mg PO TID ##0 10/09/17 10/26/19 (Imitrex) vitamin B complex (B 1 tab PO QDAY ##0 10/09/17 10/26/19 Complex-Vitamin B12 tablet) ondansetron 4 mg disintegrating 4 mg sublingual Q8HP PRN Nausea 04/06/18 10/26/19 tablet Previous Rx's Medication Instructions Recorded cyclobenzaprine 10 mg tablet 10 mg PO BID PRN #30 tabs 10/09/17 risperidone 0.5 mg tablet 0.5 mg PO BID #180 tabs 10/09/17 (Risperdal) venlafaxine 75 mg tablet 75 mg PO BID #180 tabs 10/09/17 alprazolam 0.5 mg tablet 0.5 mg PO Q DAY PRN PRN Anxiety 04/29/18 #30 tabs oxycodone 5 mg tablet (Roxicodone) 5 mg PO TID PRN pain #90 tabs 04/29/18 zolpidem 10 mg tablet 10 mg PO HSP PRN insomnia #30 tabs 04/29/18 gabapentin 600 mg tablet 600 mg PO DAILY #30 tabs 05/31/18 (Neurontin) fenofibrate nanocrystallized 145 145 mg PO QDAY #90 tabs 12/07/18 mg tablet (Tricor) oxycodone 5 mg tablet 5 mg PO Q6H PRN pain #10 tabs 10/27/22 Allergies Allergy/AdvReac Type Severity Reaction Status Date / Time Sulfa (Sulfonamide Allergy Severe Hives Verified 10/27/22 14:23 Antibiotics) [SULFA (SULFONAMIDE ANTIBIOTICS)] niacin [NIACIN] Allergy Intermediate Verified 10/27/22 14:23 naproxen [NAPROXEN] Allergy Mild crusty rash Verified 10/27/22 14:23 Penicillins [PENICILLINS] Allergy Unknown Verified 10/27/22 14:23 sulfamethoxazole Allergy Unknown Verified 10/27/22 14:23 [From BACTRIM] trimethoprim [From BACTRIM] Allergy Unknown Verified 10/27/22 14:23 Review of Systems Review of Systems ROS Unobtainable: All systems reviewed & are unremarkable except as noted in HPI and below Patient History Medical History (Updated 10/27/22 @ 19:16 by Priti Ferreira DO) Abnormal Pap smear of cervix (1999) Acne (Unknown) Allergic rhinitis (Unknown) Anxiety (11/27/17) Anxiety (2008) Breast cancer (2000) Chickenpox (Unknown) Chronic back pain (1989) Chronic back pain greater than 3 months duration (10/09/17) Depression (1983) Diabetes (2007) DVT (deep venous thrombosis) (2010) Essential hypertension (11/27/17) Gastroesophageal reflux disease without esophagitis (11/27/17) GERD (gastroesophageal reflux disease) (1994) Herpes (1978) History of deep venous thrombosis (11/27/17) Hypercholesterolemia (Unknown) Hypertension (1994) Malignant neoplasm of nipple of right breast in female, estrogen receptor positive (10/09/17) Migraine without status migrainosus, not intractable (11/27/17) Migraines (1977) Mumps (Unknown) Primary insomnia (11/27/17) Pure hypercholesterolemia (11/27/17) Recurrent major depressive disorder, in full remission (10/09/17) Seasonal allergic rhinitis (11/27/17) Shoulder pain (2005) Type 2 diabetes mellitus without complication, without long-term current use of insulin (11/27/17) Uncomplicated opioid dependence (11/27/17) Vertigo (2011) Surgical History History of hip surgery (09/2014) Hx of appendectomy (01/2008) Hx of breast surgery (09/2001) Hx of cholecystectomy (02/2010) Hx of shoulder surgery (09/2005) Family History Father Diabetes mellitus Hypertension Elevated cholesterol Stroke Depression Mother Age: 92 Alzheimers disease Depression Dementia Sister Age: 66 Breast cancer Grandfather Heart disease Grandmother Alzheimers disease Grandfather No problems noted. Grandmother Cancer Social History household members: spouse Smoking Status: Former smoker Smoking Status: Former smoker alcohol intake frequency: holidays/special occasions only Substance Use Type: marijuana Exam Initial Vital Signs Initial Vital Signs: Vital Signs Temperature 97 F L 10/27/22 14:16 Pulse Rate 85 10/27/22 14:16 Respiratory Rate 16 10/27/22 14:16 Blood Pressure 130/60 10/27/22 14:16 Pulse Oximetry 96 10/27/22 14:16 Oxygen Delivery Method Room Air 10/27/22 14:16 GENERAL: Alert pleasant 67-year-old female HEENT: Head atraumatic,EOMI, pupils reactive, face symmetric, moist mucous membranes CARDIOVASCULAR: Regular rate and rhythm without murmurs, rubs or gallops. RESPIRATORY: Breath sounds equal bilaterally, no wheezes rales or rhonchi. ABDOMEN: Soft, nontender. Normoactive bowel sounds all 4 quadrants. No guarding or rebound. EXTREMITIES: Normal range of motion, no clubbing or edema. Neurovascularly intact Right lower extremity in boot cap refill less than 2 seconds able to lift leg Left foot 2nd and 1st toe are pito-taped together no significant contusion NEUROLOGICAL: Alert and oriented x4.Normal gait and speech. Cranial nerves II through XII grossly intact. SKIN: Warm, dry, no laceration, no petechiae, no rashes or lesions. Course Orders Ordered: ED Orders 10/27/22 14:24 XR chest 1V Stat EKG-12 Lead Stat 10/27/22 14:29 Complete Blood Count AUTO DIFF Stat Comprehensive Metabolic Panel Stat Lipase Stat Magnesium Stat PTT Partial Thromboplastin Randall Stat Prothrombin Time INR Stat Troponin & CK Cardiac Panel Stat 10/27/22 18:29 Consult to BUTTON TUFTING MACHINE OPERATOR - Jack Spooler Tender Stat Vital Signs Vital signs: Vital Signs - 8 hr 10/27/22 14:16 10/27/22 18:14 10/27/22 18:16 Temperature 97 F L Pulse Rate 85 84 Respiratory Rate 16 Blood Pressure 130/60 128/60 Pulse Oximetry 96 93 Oxygen Delivery Method Room Air 10/27/22 18:16 Temperature Pulse Rate 86 Respiratory Rate 16 Blood Pressure Pulse Oximetry 97 Oxygen Delivery Method Room Air MDM - Syncope Lab Data 10/27/22 14:29 10/27/22 14:29 Labs: Lab Results 10/27/22 10/27/22 10/27/22 Range/Units 14:29 14:29 14:29 WBC 9.3 (4.5-11.0) X10^3/uL RBC 4.69 (4.0-5.2) X10^6/uL Hgb 14.0 (12.0-16.0) g/dL Hct 41.8 (36-46) % MCV 89.2 (80-100) fL MCH 29.8 (26-34) PG MCHC 33.4 (30-36) % RDW 13.8 (11.6-14.8) % Plt Count 263 (150-400) X10^3/uL Neut % (Auto) 64.0 (50-75) % Lymph % (Auto) 26.5 (25-40) % [place] % (Auto) 7.9 (3-14) % Eos % (Auto) 0.9 L (2-4) % Baso % (Auto) 0.7 (0-2) % Neut # (Auto) 5900 (0477-0613) /uL Lymph # (Auto) 2500 (2626-3089) /uL [place] # (Auto) 700 (0-900) /uL Eos # (Auto) 100 (0-450) /uL Baso # (Auto) 100 (0-100) /uL PT 10.9 (10.1-12.7) SECONDS INR 1.0 (0.9-1.3) APTT 29 (26-36) SECONDS Sodium 136 L (137-145) mmol/L Potassium 4.2 (3.4-5.1) mmol/L Chloride 96 L (98-107) mmol/L Carbon Dioxide 30 (22-32) mmol/L BUN 25 H (7-17) mg/dL Creatinine 1.09 H (0.52-1.04) mg/dL Estimated GFR 56 L (>60) mL/min BUN/Creatinine Ratio 22.9 H (6-22) Glucose 170 H (80-110) mg/dL Calcium 10.5 H (8.4-10.2) mg/dL Magnesium 1.8 (1.6-2.3) mg/dL Total Bilirubin 0.4 (0.2-1.3) mg/dL AST 22 (14-36) IU/L ALT 22 (<35) IU/L Alkaline Phosphatase 93 (38-126) U/L Total Creatine Kinase 67 (30-135) U/L CK-MB (CK-2) TNP CK-MB (CK-2) Rel Index TNP Troponin I < 0.012 (0.01-0.034) ng/mL Total Protein 7.9 (6.3-8.2) g/dL Albumin 4.5 (3.5-5.0) g/dL Globulin 3.4 (1.7-4.1) g/dL Albumin/Globulin Ratio 1.3 (1.0-2.8) Lipase 109 (23-300) U/L Imaging Data Chest x-ray: Radiologist's Impression: PROCEDURE:? XR CHEST 1V ? INDICATIONS:? chest pain ? TECHNIQUE:? One view of the chest was acquired.? ? COMPARISON:? None. ? FINDINGS:? ? Surgical changes and devices:? Surgical clips project over the right hemithorax. ? Lungs and pleura:? Lungs are clear.? No pleural effusions or pneumothorax.? ? Mediastinum:? Mediastinal contours appear normal.? Heart size is normal.? ? Bones and chest wall:? No suspicious bony lesions.? Overlying soft tissues appear unremarkable.? ? IMPRESSION:? No acute cardiopulmonary process. ? ? ? Dictated by: Scooter Tipton M.D. on 10/27/2022 at 15:20 ?? ECG Data Interpretation: Sinus rhythm rate 85 ND interval 180 QRS [address] changes or T-wave inversions--no priors MDM Narrative Medical decision making narrative: The patient 67-year-old female with history of diabetes hypertension hyperlipidemia presenting today with syncopal episode. She was [facility]. Found have distal fibular fracture now in a boot. Sent to the ED for further workup of the syncopal episode. Patient likely vasovagal she stood up too quickly. She did not hit her head pass out or lose consciousness. She is not have any neck pain. She is not on any anticoagulation. She is no nausea vomiting or other symptoms. This time I do not see need for head CT. Blood work is overall reassuring. No leukocytosis or anemia. Creatinine slightly elevated 1.0 with a BUN at 25 suggesting mild dehydration. However she is tolerating oral fluids. At this time no need IV fluids. She is chronically on oxycodone. She reports that she only has about 10 tablets left. I will give her a prescription for some more. She already has a referral into Orthopedics for her distal fibular fracture. At this time I do not see need for any further workup. Discharge Plan Departure Patient Disposition: Home Clinical Impression: Orthostatic hypotension Instructions: DI for Syncope in Adults (Fainting) Activity Restrictions/Additional Instructions: *You have been diagnosed with orthostatic hypotension *What to do: At this time please follow previous directions take blood pressure daily. Was recommended that you hold her metoprolol. Please keep boot on at all times use walker or crutches as needed. Referral to Orthopedics has been placed. Be sure to drink some water. *Continue to take medications as directed Oxycodone 5 mg every 6 hours if needed for severe pain--> sent to [facility] *Follow up with your primary care provider in 2-3 days or call [phone] [facility] *Return to ER if you should have recurrent episode of passing out increasing pain numbness tingling weakness or any new, worsening or concerning symptoms CONTROLLED SUBSTANCE DISCHARGE (Narcotoic/benzodiazepine/Flexeril/Phenergan) 1. You have been prescribed narcotic medications, it does have acetaminophen/Tylenol/paracetamol in it, DO NOT TAKE MORE THAN 4,00mg in 24 hours of Tylenol. TRAMADOL DOES NOT CONTAIN TYLENOL 2. Please understand that we cannot provide further refills of narcotics, benzodiazepines or controlled substances through the ED and her pain management will need to be through your provider. 3. While on these medications you cannot drive or operate heavy machinery. 4. You cannot sign legal documents or perform any duties such as this. 5. As long as you're taking opiate pain medications he should also be taking a stool softener such as Colace, Dulcolax, MiraLAX or prune juice, to help avoid constipation. Prescriptions: New oxycodone 5 mg tablet 5 mg PO Q6H PRN (Reason: pain) Qty: 10 0RF No Action alprazolam 0.5 mg tablet 0.5 mg PO Q DAY PRN PRN (Reason: Anxiety) Qty: 30 0RF oxycodone [Roxicodone] 5 mg tablet 5 mg PO TID PRN (Reason: pain) Qty: 90 0RF Rx Instructions: EXEMPT zolpidem 10 mg tablet 10 mg PO HSP PRN (Reason: insomnia) Qty: 30 5RF multivitamin [Multiple Vitamins] 1 EACH tablet 1 tab PO QDAY Qty: 0 aspirin 81 MG tablet,delayed release (DR/EC) 81 mg PO QDAY Qty: 0 anastrozole 1 MG tablet 1 mg PO QDAY Qty: 0 atorvastatin [Lipitor] 10 MG tablet 10 mg PO HS Qty: 0 vitamin B complex [B Complex-Vitamin B12] 1 EACH tablet 1 tab PO QDAY Qty: 0 [B-D UF 3 MINI PEN NE] Qty: 0 bupropion HCl [Wellbutrin XL] 150 MG tablet extended release 24 hr 150 mg PO QDAY Qty: 0 exenatide microspheres [Bydureon] 2 MG/0.65 ML pen injector 2 mg SQ WEEKLY Qty: 0 [BIOTIN] Qty: 0 cholecalciferol (vitamin D3) 5,000 UNIT capsule 5,000 unit PO DAILY Qty: 0 ferrous sulfate [Iron (ferrous sulfate)] 325 MG tablet 325 mg PO QDAY Qty: 0 [free style lite] TID Qty: 0 lisinopril-hydrochlorothiazide 10 MG/12.5 MG tablet 1 tab PO QDAY Qty: 0 metformin 1,000 MG tablet 1,000 mg PO BIDCC Qty: 0 [MILK THISTLE] Qty: 0 sumatriptan succinate [Imitrex] 25 MG tablet 25 mg PO TID Qty: 0 venlafaxine 75 MG tablet 75 mg PO BID Qty: 180 3RF risperidone [Risperdal] 0.5 MG tablet 0.5 mg PO BID Qty: 180 3RF cyclobenzaprine 10 MG tablet 10 mg PO BID PRNQty: 30 3RF gabapentin [Neurontin] 600 mg tablet 600 mg PO DAILY Qty: 30 2RF fenofibrate nanocrystallized [Tricor] 145 mg tablet 145 mg PO QDAY Qty: 90 1RF ondansetron 4 MG tablet,disintegrating 4 mg Sublingual Q8HP PRN (Reason: Nausea) Referrals: [facility] [Provider Group] Donna Diane ARNP [Primary Care Provider] - Stand Alone Forms: Patient Portal/API
[2022-10-27 19:00] VITALS: BP 136/63; PULSE 82; O2SAT 95
--- NOTE | 2022-10-27 19:14 | CM.DANOTE ---
Discharge Assessment Note 10/27/2022 Pt is a 67yo female who is seen in the ED for syncope and left tibula fracture. Pt reports that she fell last night and went to PCP on [place] today and was diagnosed with tibula fracture. She is independent with ADL's at [facility] and enjoys going on walks and volunteering at various entities on [place] where she lives with her . Pt has Medicare insurance coverage and for Life through her who is a [place] of [employer]. Pt does not have any support services. 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 No hx of SNF placement. She does have a 2WW at home that she was using since her fall last night due to not being able to bear weight on her left leg. Pt and have lived on [place] since they retired in 2017. 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 They have a dog and cat at home they identify being anxious to get back to the [place] to care for. notes primary concern is making the 9pm [place] back to [place]. Discussed home health referral with [facility] being the one agency that serves [place]. This SW contacted Alphonso at [facility] earlier this evening as she was aware of pt in the waiting room. Alphonso informed SW that at this time [facility] is scheduling out close to the end of the month for [place]. Pt and agreeable to home health referral with goal of building strength and treating left leg weakness. DARRYL informed both that [facility] would not be able to open services until roughly the end of the month as above, both are in agreement. DARRYL discussed the above with ED MD and Face to Face form signed and SW to fax packet to [facility] to follow-up. Plan: Pt pending medical clearance. Anticipate she will be discharged by ED MD once she is medically cleared. ISSAC Fry LICSW Discharge Planning/Care Management CM Discharge Assessment Start: 10/27/22 19:08 Freq: Status: Active Protocol: Document 10/27/22 19:08 VR (Rec: 10/27/22 19:14 VR [id number]) Discharge Planning Assessment Assigned Marketing And Public Relations Manager Brandon, HISTOLOGIC TECHNICIAN, INSURANCE SALES SUPERVISOR DPOA/Assigned Designee Name : Jun Carlos Contact Information [phone] Advance Directives? Yes History Provided By Patient,Significant Other Has Patient been admitted in last 30 No days? Prior Living Arrangements House Household Members spouse Type of transporation used prior to Drives own vehicle admit Independent with ADL's Yes: independent at [facility]. Has a 2WW at home. Is patient alert and oriented? Yes Caregiver for Another No DME Already Rented / Owned FWW / Walker Patient/Family Preference Home with Home Health Barriers to Discharge No Discharge Plan Home with Home Health Community Services Physical Therapy Referrals Initiated Home Health If patient plan is home with home health Yes : Has signed face to face form been completed? Medicare Choice List Provided Yes Medicare choice list reviewed on patient,family electronic tablet with SNF/HH Preference [facility] Contact Name/ Has Agency SNF been contacted Yes Comment SW spoke with Alphonso who indicated for [facility] is scheduling out close to the end of the month. Pt and aware of timeframe and in agreement. Please Provide Date Initial DC 10/27/22 Assessment Was Performed
--- NOTE | 2022-10-27 19:48 | PC.NURSE ---
Report of visit sent to [facility] via
== END 2022-10-27 19:34 | disposition home or self-care (01) ==
PROVIDERS: Emergency Medicine; Emergency Provider Emergency Medicine; PCP Nurse Practitioner Family
DX: I95.1 Orthostatic hypotension (principal); R07.9 Chest pain, unspecified
CPT/HCPCS: 36415; 71045; 80053; 82550; 83690; 83735; 84484; 85025; 85610; 85730; 93005; 93010; 99284

== ENCOUNTER 2023-10-19 12:35 | Emergency (ER) | payer MEDICARE, OTHER, SELFPAY ==
[2023-10-19] VITALS (14 sets, daily range): BP systolic 160–208; BP diastolic 72–103; PULSE 70–82; RESP 11–36; TEMP 37–37.1; O2SAT 96–100; BMI 25.3
--- NOTE | 2023-10-19 12:44 | DI.RAD.S_ITS ---
PROCEDURE: XR CHEST 1V INDICATIONS: chest pain TECHNIQUE: One view of the chest was acquired. COMPARISON: [facility], CR, XR CHEST 1V, 10/27/2022, 14:36. FINDINGS: Surgical changes and devices: None. Lungs and pleura: Mild increased vascularity. Mediastinum: Mediastinal contours appear normal. Heart size is prominent. Bones and chest wall: No suspicious bony lesions. Overlying soft tissues appear unremarkable. IMPRESSION: Cardiomegaly with increased vascularity suggestive of edema. Dictated by: Rita Villa M.D. on 10/19/2023 at 14:43 Approved by: Rita Villa M.D. on 10/19/2023 at 14:43
--- NOTE | 2023-10-19 12:47 | DI.RAD.S_ITS ---
PROCEDURE: XR PELVIS 1-2V INDICATIONS: pain TECHNIQUE: 1 view(s) of the pelvis acquired. COMPARISON: [facility], CR, XR FEMUR RT MIN 2V, 10/19/2023, 13:03. FINDINGS: Bones: No fractures or dislocations. No suspicious bony lesions. Left hip arthroplasty. Hardware is intact without hardware fracture or periprosthetic lucency to suggest loosening. Alignment is stable. Right hip arthritic change. Soft tissues: Visualized bowel gas pattern is normal. No suspicious soft tissue calcifications. IMPRESSION: Left hip arthroplasty. Right hip arthritic change. Dictated by: Rita Villa M.D. on 10/19/2023 at 14:42 Approved by: Rita Villa M.D. on 10/19/2023 at 14:43
--- NOTE | 2023-10-19 12:47 | DI.RAD.S_ITS ---
PROCEDURE: XR FEMUR RT MIN 2V INDICATIONS: pain TECHNIQUE: 2 views of the femur were acquired. COMPARISON: None. FINDINGS: Bones: No fractures or dislocations. No suspicious bony lesions. Arthritic changes are present within the hip as well as visualized portions of the knee. Soft tissues: No suspicious soft tissue calcifications or masses. IMPRESSION: Macro occult injury Dictated by: Rita Villa M.D. on 10/19/2023 at 14:41 Approved by: Rita Villa M.D. on 10/19/2023 at 14:42
[2023-10-19] MEDS: ONDANSETRON 4 MG/2 ML INJ IV (12:54)
--- NOTE | 2023-10-19 12:57 | ED.GENADULT ---
HPI - General Adult General Chief complaint: Weakness Stated complaint: n/v, weakness Time Seen by Provider: 10/19/23 12:56 Source: patient Mode of arrival: Family Vehicle History of Present Illness HPI narrative: 68-year-old female with history of appendectomy, cholecystectomy, chronic opiate use, breast cancer, depression, anxiety, hypertension, GERD, DVT, migraines, hypercholesterolemia, diabetes, penicillin and sulfa allergies presents with nausea and vomiting and weakness. Patient clarifies history with me. She states for the last 3 weeks, she has been out of her diabetes medication. She is not prescribed insulin per her report. She notes generalized weakness without focality, with no focal numbness or weakness, visual changes, hearing changes, dysarthria, confusion. She has had intermittent nausea and vomiting, without any head or neck or chest or back or abdominal pain at any time. She does have lateral right thigh pain described as muscle spasms sometimes. No blood involvement. She is having decreased bowel movements in setting of poor p.o. intake, though is still passing gas. She denies shortness of breath, fevers or chills, dysuria, hematuria, urinary frequency, rash, trauma, visual changes, focal numbness or weakness, or other changes. She was flown in from [place] for further assessment. She states she is currently comfortable; she is willing to accept fluids and nausea medications but declines pain or other medications currently. Spouse reportedly en route. Related Data Home Medications Medication Instructions Recorded Confirmed [B-D UF 3 MINI PEN NE] ##0 10/09/17 10/26/19 [BIOTIN] ##0 10/09/17 10/26/19 [MILK THISTLE] ##0 10/09/17 10/26/19 [free style lite] TID ##0 10/09/17 10/26/19 anastrozole 1 mg tablet 1 mg PO QDAY ##0 10/09/17 10/26/19 aspirin 81 mg tablet,delayed 81 mg PO QDAY ##0 10/09/17 10/26/19 release atorvastatin 10 mg tablet (Lipitor) 10 mg PO HS ##0 10/09/17 10/26/19 bupropion HCl 150 mg 24 hr tablet, 150 mg PO QDAY ##0 10/09/17 10/26/19 extended release (Wellbutrin XL) cholecalciferol (vitamin D3) 125 5,000 unit PO DAILY ##0 10/09/17 10/26/19 mcg (5,000 unit) capsule exenatide microspheres 2 mg/0.65 2 mg SQ WEEKLY ##0 10/09/17 10/26/19 mL subcutaneous pen injector (Bydureon) ferrous sulfate 325 mg (65 mg 325 mg PO QDAY ##0 10/09/17 10/26/19 iron) tablet (Iron (ferrous sulfate)) lisinopril 10 1 tab PO QDAY ##0 10/09/17 10/26/19 mg-hydrochlorothiazide 12.5 mg tablet metformin 1,000 mg tablet 1,000 mg PO BIDCC ##0 10/09/17 10/26/19 multivitamin (Multiple Vitamins 1 tab PO QDAY ##0 10/09/17 10/26/19 tablet) sumatriptan succinate 25 mg tablet 25 mg PO TID ##0 10/09/17 10/26/19 (Imitrex) vitamin B complex (B 1 tab PO QDAY ##0 10/09/17 10/26/19 Complex-Vitamin B12 tablet) ondansetron 4 mg disintegrating 4 mg sublingual Q8HP PRN Nausea 04/06/18 10/26/19 tablet Previous Rx's Medication Instructions Recorded cyclobenzaprine 10 mg tablet 10 mg PO BID PRN #30 tabs 10/09/17 risperidone 0.5 mg tablet 0.5 mg PO BID #180 tabs 10/09/17 (Risperdal) venlafaxine 75 mg tablet 75 mg PO BID #180 tabs 10/09/17 alprazolam 0.5 mg tablet 0.5 mg PO Q DAY PRN PRN Anxiety 04/29/18 #30 tabs oxycodone 5 mg tablet (Roxicodone) 5 mg PO TID PRN pain #90 tabs 04/29/18 zolpidem 10 mg tablet 10 mg PO HSP PRN insomnia #30 tabs 04/29/18 gabapentin 600 mg tablet 600 mg PO DAILY #30 tabs 05/31/18 (Neurontin) fenofibrate nanocrystallized 145 145 mg PO QDAY #90 tabs 12/07/18 mg tablet (Tricor) oxycodone 5 mg tablet 5 mg PO Q6H PRN pain #10 tabs 10/27/22 ondansetron 4 mg disintegrating 4 mg PO Q8H PRN nausea and 10/19/23 tablet vomiting #10 tabs Allergies Allergy/AdvReac Type Severity Reaction Status Date / Time Sulfa (Sulfonamide Allergy Severe Hives Verified 10/19/23 12:43 Antibiotics) [SULFA (SULFONAMIDE ANTIBIOTICS)] niacin [NIACIN] Allergy Intermediate Verified 10/19/23 12:43 naproxen [NAPROXEN] Allergy Mild crusty rash Verified 10/19/23 12:43 Penicillins [PENICILLINS] Allergy Unknown Verified 10/19/23 12:43 sulfamethoxazole Allergy Unknown Verified 10/19/23 12:43 [From BACTRIM] trimethoprim [From BACTRIM] Allergy Unknown Verified 10/19/23 12:43 Review of Systems Review of Systems Narrative: Constitutional: no fever, no chills Eyes: no visual disturbance, no discharge Ears, Nose, Mouth, Throat: no rhinorrhea, no sore throat Cardiovascular: no chest pain, no palpitations Respiratory: no cough, no shortness of breath Gastrointestinal: no abdominal pain, + vomiting, no diarrhea Genitourinary: no dysuria, no hematuria Musculoskeletal: no back pain, no neck stiffness Skin: no rash, no wound Neurological: no focal weakness, no focal numbness Patient History Medical History (Updated 10/19/23 @ 16:38 by Noah Lo MD) Migraines (1977) Shoulder pain (2005) Abnormal Pap smear of cervix (1999) Anxiety (2008) Depression (1983) Allergic rhinitis (Unknown) Hypercholesterolemia (Unknown) Acne (Unknown) Chickenpox (Unknown) Mumps (Unknown) Chronic back pain (1989) Vertigo (2011) Herpes (1978) GERD (gastroesophageal reflux disease) (1994) Diabetes (2007) Hypertension (1994) DVT (deep venous thrombosis) (2010) Breast cancer (2000) Type 2 diabetes mellitus without complication, without long-term current use of insulin (11/27/17) Uncomplicated opioid dependence (11/27/17) Seasonal allergic rhinitis (11/27/17) Pure hypercholesterolemia (11/27/17) Primary insomnia (11/27/17) Migraine without status migrainosus, not intractable (11/27/17) History of deep venous thrombosis (11/27/17) Gastroesophageal reflux disease without esophagitis (11/27/17) Essential hypertension (11/27/17) Anxiety (11/27/17) Recurrent major depressive disorder, in full remission (10/09/17) Malignant neoplasm of nipple of right breast in female, estrogen receptor positive (10/09/17) Chronic back pain greater than 3 months duration (10/09/17) Surgical History History of hip surgery (09/2014) Hx of shoulder surgery (09/2005) Hx of appendectomy (01/2008) Hx of cholecystectomy (02/2010) Hx of breast surgery (09/2001) Family History Father Diabetes mellitus Hypertension Elevated cholesterol Stroke Depression Mother Age: 93 Alzheimers disease Depression Dementia Sister Age: 67 Breast cancer Grandfather Heart disease Grandmother Alzheimers disease Grandfather No problems noted. Grandmother Cancer Social History household members: spouse Smoking Status: Former smoker Smoking Status: Former smoker alcohol intake frequency: holidays/special occasions only Substance Use Type: marijuana Exam Narrative Exam Narrative: Const: no acute distress, non toxic appearing; calm, conversant, pleasant Eyes: PERRLA EOMI ENT: mucous membranes moist Neck: supple, non-tender Resp: no respiratory distress, clear to auscultation bilaterally Card: regular rate and rhythm, no murmurs Abd: non tender diffusely on multiple assessments, negative Diane's sign, no rigidity or rebound or guarding Back: no T or L spine tenderness, no CVA tenderness bilaterally Extrem: no deformities, no swelling bilateral lower extremities; mild lateral right thigh tenderness with no lesions, rash, swelling or pain to joints, with fully intact strength and sensation throughout all extremities along with 2+ distal pulses all extremities, normal coordination Neuro: ANOx4, intellectual property counsel grossly intact, grossly intact sensation and strength all extremities Skin: no rash, warm and dry Initial Vital Signs Initial Vital Signs: Vital Signs Temperature 98.6 F 10/19/23 12:36 Pulse Rate 70 10/19/23 12:36 Respiratory Rate 17 10/19/23 12:36 Blood Pressure 182/103 H 03/04/24 12:36 Pulse Oximetry 97 03/04/24 12:36 Oxygen Delivery Method Room Air 10/19/23 12:36 Course Course Course Narrative: This patient presents with nausea and vomiting, weakness that is generalized without focality. I have considered a broad differential including but not limited to intravascular volume depletion, JAYSHREE, electrolyte derangements, DKA, HHS, muscle strain or sprain, bowel obstruction, pneumonia, gastritis, viral syndrome, UTI, among others. However, she currently appears very well, without pain, with benign abdomen, and with history and exam that are highly suggestive of intravascular volume depletion. She is fully neurovascularly intact. No evidence of shortness of breath. No chest pain. I am nonetheless obtaining EKG, troponin, CBC, CMP, lipase, urinalysis, viral swab, chest x-ray, right femur x-ray. I am giving fluids and Zofran and will closely reassess. EKG NSR without acute ischemia or immediately concerning interval prolongation on my review. I suspect some poor quality, with atrial flutter a consideration, however lead II appears to show normal sinus rhythm. CBC with no leukocytosis, anemia, thrombocytopenia. Chemistry with hyperglycemia, overall grossly reassuring, with mild AST elevation without ALT or alk-phos or bilirubin elevation or abdominal pain or tenderness on exam. BUN elevation could suggest intravascular volume depletion, consistent with my suspicion. Lipase reassuring. Magnesium low; ordering 400 mg p.o. Mag oxide. Troponin negative. CK within normal limits. INR within normal limits. PTT within normal limits. Viral swab negative. Zofran mildly helped but patient is still nauseous. Giving Reglan. Radiology review of imaging below, which I agree with on my independent review: Femur XR: FINDINGS: Bones: No fractures or dislocations. No suspicious bony lesions. Arthritic changes are present within the hip as well as visualized portions of the knee. Soft tissues: No suspicious soft tissue calcifications or masses. IMPRESSION: Macro occult injury Dictated by: Rita Villa M.D. on 10/19/2023 at 14:41 Approved by: Rita Villa M.D. on 10/19/2023 at 14:42 ADDENDUM: Impression: No visualized acute fracture or dislocation. However, if clinical concern and/or pain persist, short interval imaging followup in 7-10 days is recommended, as occult injury cannot be definitively excluded. Dictated by: Rita Villa M.D. on 10/19/2023 at 16:14 Note macro occult injury is an error, which we confirmed with the radiologist via phone per my staff. She is unable to edit this. Pelvis XR: Bones: No fractures or dislocations. No suspicious bony lesions. Left hip arthroplasty. Hardware is intact without hardware fracture or periprosthetic lucency to suggest loosening. Alignment is stable. Right hip arthritic change. Soft tissues: Visualized bowel gas pattern is normal. No suspicious soft tissue calcifications. IMPRESSION: Left hip arthroplasty. Right hip arthritic change. Dictated by: Rita Villa M.D. on 10/19/2023 at 14:42 CXR: FINDINGS: Surgical changes and devices: None. Lungs and pleura: Mild increased vascularity. Mediastinum: Mediastinal contours appear normal. Heart size is prominent. Bones and chest wall: No suspicious bony lesions. Overlying soft tissues appear unremarkable. IMPRESSION: Cardiomegaly with increased vascularity suggestive of edema. Dictated by: Rita Villa M.D. on 10/19/2023 at 14:43 Note patient with no current shortness of breath, in no respiratory distress. She states she feels improved with fluids here. Patient ambulatory and tolerating p.o.. She appears very stable and comfortable here. She appears stable for close follow up with return precautions and antiemetic prescriptions. She prefers Zofran prescription. Note she has NO urinary symptoms, and symptoms improved with fluids and antiemetics, so UA was withheld. In fact, patient appears very well, ambulatory, asymptomatic, afebrile, well perfused, without any current concerns now beyond mild intermittent R thigh pain that may be due to underlying musculoskeletal disease/arthritis. I have reassessed this patient numerous times in the setting of her being flown here for assessment, however there appears to be absolutely no emergent condition at this time. Patient agrees with me and is not sure why she was flown here. Prescribing Zofran. Blood pressure elevated but patient did not take her blood pressure medications today and does not remember what they are. She prefers to take this at home and shows no evidence of hypertensive emergency here clinically, so I think this is reasonable. Repeat exam reassuring. No new concerns. Questions answered. Plan reviewed. Patient discharged in stable condition. Orders Ordered: ED Orders 10/19/23 12:40 EKG-12 Lead Routine 10/19/23 12:44 XR chest 1V Stat EKG-12 Lead Stat 10/19/23 12:47 XR femur RT min 2V Stat XR pelvis 1-2V Stat 10/19/23 12:48 Complete Blood Count AUTO DIFF Stat Comprehensive Metabolic Panel Stat Covid-19 + FLU A/B + RSV - PCR Stat Lipase Stat Magnesium Stat PTT Partial Thromboplastin Randall Stat Prothrombin Time INR Stat Troponin & CK Cardiac Panel Stat Discontinued Medications Sodium Chloride (Normal Saline 0.9%) 1,000 mls @ 1,000 mls/hr IV BOLUS ONE Stop: 10/19/23 14:21 Last Infusion: 10/19/23 14:48 Dose: Infused Documented By: Admin: 10/19/23 13:44 Dose: 1,000 mls/hr Documented By: ESTHER Magnesium Oxide (Magnesium Oxide 400 Mg Tablet) 400 mg PO DAILY BEE Last Admin: 10/19/23 13:55 Dose: 400 mg Documented By: ESTHER Metoclopramide HCl (Metoclopramide 10 Mg/2 Ml Inj) 10 mg IV NOW ONE Stop: 10/19/23 14:24 Last Admin: 10/19/23 14:37 Dose: 10 mg Documented By: ESTHER Ondansetron HCl (Ondansetron 4 Mg Odt) 4 mg SL NOW PRN PRN Reason: Nausea And Vomiting Ondansetron HCl (Ondansetron 4 Mg/2 Ml Inj) 4 mg IV NOW PRN PRN Reason: Nausea And Vomiting Last Admin: 10/19/23 12:54 Dose: 4 mg Documented By: JEREMY Vital Signs Vital signs: Vital Signs - 8 hr 10/19/23 12:36 10/19/23 12:37 10/19/23 12:38 Temperature 98.6 F Pulse Rate 70 72 Respiratory Rate 17 Blood Pressure 182/103 H 182/103 H Pulse Oximetry 97 98 Oxygen Delivery Method Room Air 10/19/23 12:38 10/19/23 13:00 10/19/23 13:01 Temperature Pulse Rate 73 76 Respiratory Rate 12 Blood Pressure 160/72 H Pulse Oximetry 98 96 Oxygen Delivery Method 10/19/23 13:01 10/19/23 13:41 10/19/23 13:43 Temperature Pulse Rate 77 77 Respiratory Rate 11 L Blood Pressure 171/96 H Pulse Oximetry 96 98 Oxygen Delivery Method Room Air 10/19/23 13:43 10/19/23 14:00 10/19/23 14:00 Temperature Pulse Rate 78 76 Respiratory Rate 36 H 24 Blood Pressure 180/77 H Pulse Oximetry 98 97 Oxygen Delivery Method 10/19/23 14:30 10/19/23 14:30 10/19/23 15:00 Temperature Pulse Rate 78 78 Respiratory Rate 14 16 Blood Pressure 208/98 H Pulse Oximetry 99 99 Oxygen Delivery Method Room Air 10/19/23 15:01 10/19/23 15:01 10/19/23 15:42 Temperature Pulse Rate 79 82 Respiratory Rate 20 Blood Pressure 203/81 H Pulse Oximetry 100 97 Oxygen Delivery Method 10/19/23 15:44 10/19/23 15:44 10/19/23 17:06 Temperature 98.7 F Pulse Rate 80 74 Respiratory Rate 11 L 20 Blood Pressure 192/84 H 195/82 H Pulse Oximetry 98 98 Oxygen Delivery Method Room Air Medical Decision Making Lab Data 10/19/23 12:48 10/19/23 12:48 Labs: Lab Results 10/19/23 Range/Units 12:48 WBC 9.1 (4.5-11.0) X10^3/uL RBC 5.16 (4.0-5.2) X10^6/uL Hgb 16.0 (12.0-16.0) g/dL Hct 47.0 H (36-46) % MCV 91.1 (80-100) fL MCH 31.0 (26-34) PG MCHC 34.1 (30-36) % RDW 13.9 (11.6-14.8) % Plt Count 304 (150-400) X10^3/uL Neut % (Auto) 72.8 (50-75) % Lymph % (Auto) 19.9 L (25-40) % [place] % (Auto) 6.6 (3-14) % Eos % (Auto) 0.2 L (2-4) % Baso % (Auto) 0.5 (0-2) % Neut # (Auto) 6600 (1826-7136) /uL Lymph # (Auto) 1800 (2013-5045) /uL [place] # (Auto) 600 (0-900) /uL Eos # (Auto) 0 (0-450) /uL Baso # (Auto) 0 (0-100) /uL PT 11.4 (9.4-12.5) SECONDS INR 1.0 (0.9-1.3) APTT 33 (25.1-36.5) SECONDS Sodium 137 (137-145) mmol/L Potassium 4.8 (3.4-5.1) mmol/L Chloride 103 (98-107) mmol/L Carbon Dioxide 25 (22-32) mmol/L BUN 30 H (7-17) mg/dL Creatinine 0.69 (0.52-1.04) mg/dL Estimated GFR > 60 (>60) mL/min BUN/Creatinine Ratio 43.5 H (6-22) Glucose 214 H (80-110) mg/dL Calcium 10.2 (8.4-10.2) mg/dL Magnesium 1.5 L (1.6-2.3) mg/dL Total Bilirubin 1.1 (0.2-1.3) mg/dL AST 49 H (14-36) IU/L ALT 23 (<35) IU/L Alkaline Phosphatase 63 (38-126) U/L Total Creatine Kinase 81 (30-135) U/L Troponin I 0.016 (0.01-0.034) ng/mL Total Protein 8.7 H (6.3-8.2) g/dL Albumin 4.8 (3.5-5.0) g/dL Globulin 3.9 (1.7-4.1) g/dL Albumin/Globulin Ratio 1.2 (1.0-2.8) Lipase 66 (23-300) U/L SARS-CoV-2 (PCR) Negative (Negative) Influenza A (RT-PCR) Flu a negative (NEGATIVE) Influenza B (RT-PCR) Flu b negative (NEGATIVE) RSV (PCR) Negative (Negative) Discharge Plan Departure Patient Disposition: Home Clinical Impression: Nausea Instructions: DI for Nausea -- Adult Activity Restrictions/Additional Instructions: It was a pleasure taking care of you today. It is important to fully read and understand the below. Please ask us if you have any questions. Please resume your medications. We are prescribing Zofran for nausea. Your blood sugar is elevated. Her AST is elevated. Your magnesium was low here. Please see your primary doctor within 3 days to be reassessed and bring this sheet. Your chest x-ray also shows potential fluid, and you have arthritis on your hips. Do not take other antiemetics with Zofran. No tests or assessments are perfect, and your condition could change release manager time. If your symptoms change or worsen, it is very important you immediately seek medical care. If you have any new or worsening pain, []shortness of breath, fever, vomiting, confusion, numbness, weakness, or anything else that concerns you, please immediately seek medical care. If you have been prescribed any medications: please read the drug package inserts on how to properly use the medication and any potential side effects. If you had labs (blood tests) or imaging (CT scan or x-rays) done during your visit: please follow up on the results of these with your primary care doctor, as discussed. In addition, please know the results we received today may be preliminary. Our usual practice is to follow up on tests within a few days of a patient's discharge from the Emergency Department and notify you of any changes. These may lead to changes to your treatment plan. However, the best way to obtain and interpret these test results is through your Primary Care Provider. If you need to update your contact information, please stop by the front office manager and alert the Registration personnel before you leave the Emergency Department. Thank you for the opportunity to participate in your healthcare. We are always here and happy to see you in the future. Prescriptions: New ondansetron 4 mg tablet,disintegrating 4 mg PO Q8H PRN (Reason: nausea and vomiting) Qty: 10 0RF No Action alprazolam 0.5 mg tablet 0.5 mg PO Q DAY PRN PRN (Reason: Anxiety) Qty: 30 0RF oxycodone [Roxicodone] 5 mg tablet 5 mg PO TID PRN (Reason: pain) Qty: 90 0RF Rx Instructions: EXEMPT zolpidem 10 mg tablet 10 mg PO HSP PRN (Reason: insomnia) Qty: 30 5RF multivitamin [Multiple Vitamins] 1 EACH tablet 1 tab PO QDAY Qty: 0 aspirin 81 MG tablet,delayed release (DR/EC) 81 mg PO QDAY Qty: 0 anastrozole 1 MG tablet 1 mg PO QDAY Qty: 0 atorvastatin [Lipitor] 10 MG tablet 10 mg PO HS Qty: 0 vitamin B complex [B Complex-Vitamin B12] 1 EACH tablet 1 tab PO QDAY Qty: 0 [B-D UF 3 MINI PEN NE] Qty: 0 bupropion HCl [Wellbutrin XL] 150 MG tablet extended release 24 hr 150 mg PO QDAY Qty: 0 exenatide microspheres [Bydureon] 2 MG/0.65 ML pen injector 2 mg SQ WEEKLY Qty: 0 [BIOTIN] Qty: 0 cholecalciferol (vitamin D3) 5,000 UNIT capsule 5,000 unit PO DAILY Qty: 0 ferrous sulfate [Iron (ferrous sulfate)] 325 MG tablet 325 mg PO QDAY Qty: 0 [free style lite] TID Qty: 0 lisinopril-hydrochlorothiazide 10 MG/12.5 MG tablet 1 tab PO QDAY Qty: 0 metformin 1,000 MG tablet 1,000 mg PO BIDCC Qty: 0 [MILK THISTLE] Qty: 0 sumatriptan succinate [Imitrex] 25 MG tablet 25 mg PO TID Qty: 0 venlafaxine 75 MG tablet 75 mg PO BID Qty: 180 3RF risperidone [Risperdal] 0.5 MG tablet 0.5 mg PO BID Qty: 180 3RF cyclobenzaprine 10 MG tablet 10 mg PO BID PRNQty: 30 3RF gabapentin [Neurontin] 600 mg tablet 600 mg PO DAILY Qty: 30 2RF fenofibrate nanocrystallized [Tricor] 145 mg tablet 145 mg PO QDAY Qty: 90 1RF ondansetron 4 MG tablet,disintegrating 4 mg Sublingual Q8HP PRN (Reason: Nausea) oxycodone 5 mg tablet 5 mg PO Q6H PRN (Reason: pain) Qty: 10 0RF Referrals: Donna Diane ARNP [Non-Staff] - Stand Alone Forms: Patient Portal/API
[2023-10-19 13:10] LABS: Add Manual Diff / Slide Review NO; Basophils Absolute Auto 0 /uL (0-100); Basophils Percent Auto 0.5 % (0-2); Eosinophils Absolute Auto 0 /uL (0-450); Eosinophils Percent Auto 0.2 % (2-4); Lymphocytes Absolute Auto 1800 /uL (1100-4500); Lymphocytes Percent Auto 19.9 % (25-40); Mean Corpuscular HGB Conc 34.1 % (30-36); Mean Corpuscular Volume 91.1 fL (80-100); Monocytes Absolute Auto 600 /uL (0-900); Monocytes Percent Auto 6.6 % (3-14); Neutrophils Absolute Auto 6600 /uL (1500-7000); Neutrophils Percent Auto 72.8 % (50-75); Platelet Count 304 X10^3/uL (150-400); Red Blood Cell Count 5.16 X10^6/uL (4.0-5.2); Red Cell Distribution Width 13.9 % (11.6-14.8); White Blood Cell Count 9.1 X10^3/uL (4.5-11.0)
[2023-10-19 13:20] LABS: Prothrombin Time 11.4 SECONDS (9.4-12.5)
[2023-10-19 13:23] LABS: PTT Partial Thromboplastin Tim 33 SECONDS (25.1-36.5)
[2023-10-19 13:29] LABS: Alanine Aminotransferase 23 IU/L (<35); Albumin 4.8 g/dL (3.5-5.0); Albumin Globulin Ratio 1.2 (1.0-2.8); Alkaline Phosphatase 63 U/L (38-126); Aspartate Aminotransferase 49 IU/L (14-36); BUN Creatinine Ratio 43.5 (6-22); Bilirubin Total 1.1 mg/dL (0.2-1.3); Blood Urea Nitrogen 30 mg/dL (7-17); Calcium 10.2 mg/dL (8.4-10.2); Carbon Dioxide 25 mmol/L (22-32); Chloride 103 mmol/L (98-107); Creatine Kinase 81 U/L (30-135); Estimated Glomerular Filt Rate > 60 mL/min (>60); Globulin 3.9 g/dL (1.7-4.1); Glucose 214 mg/dL (80-110); Lipase 66 U/L (23-300); Magnesium 1.5 mg/dL (1.6-2.3); Potassium 4.8 mmol/L (3.4-5.1); Sodium 137 mmol/L (137-145); Total Protein 8.7 g/dL (6.3-8.2)
[2023-10-19 13:30] LABS: HEMOLYSIS 168 (0-50)
[2023-10-19 13:37] LABS: Troponin I 0.016 ng/mL (0.01-0.034)
[2023-10-19] MEDS: SODIUM CHLORIDE 0.9% 1,000 ML 1000 ML IV (13:44)
[2023-10-19 13:49] LABS: Influenza A - CEPHEID Flu A NEGATIVE (NEGATIVE); Influenza B - CEPHEID Flu B NEGATIVE (NEGATIVE); Respiratory Syncytial Virus Negative (Negative)
[2023-10-19 13:50] LABS: COVID-19 CEPHEID 4-PLEX PCR Negative (Negative)
[2023-10-19] MEDS: MAGNESIUM OXIDE 400 MG TABLET PO (13:55)
[2023-10-19] MEDS: METOCLOPRAMIDE 10 MG/2 ML INJ IV (14:37)
--- NOTE | 2023-10-19 15:17 | PC.NURSE ---
ambulated pt with walker and o2 monitor; pt oxygen maintained 98%; pt stated that's weird my right thigh is not hurting anymore as we turned pt stated it still hurts but not as much as before RN aware. Pt is back in bed siderails up call light within reach.
== END 2023-10-19 17:05 | disposition home or self-care (01) ==
PROVIDERS: Emergency Provider Emergency Medicine
DX: R11.0 Nausea (principal); I10 Essential (primary) hypertension; R53.1 Weakness; Z79.899 Other long term (current) drug therapy; Z20.822 Contact with and (suspected) exposure to COVID-19
CPT/HCPCS: 0241U; 71045; 72170; 73552; 80053; 82550; 83690; 83735; 84484; 85025; 85610; 85730; 93005; 93010; 96361; 96374; 96375; 99284; J2405; J2765

== ENCOUNTER → 2023-12-29 09:42 | Outpatient (CLI) | payer MEDICARE, OTHER, SELFPAY ==
--- NOTE | 2023-12-29 09:45 | DI.NM.S_ITS ---
PROCEDURE: NM BONE SCAN WHOLE BODY RADIOPHARMACEUTICAL: 22.0 mCi Tc-99m MDP IV. INDICATIONS: RIGHT THIGH PAIN TECHNIQUE: Delayed whole-body scintigrams were obtained approximately 3-4 hours after intravenous injection of radiotracer. Anterior and posterior views were acquired from vertex to feet. Additional left and right oblique views of the ribcage and pelvis were obtained. COMPARISON: [facility], CR, XR CHEST 1V, 10/19/2023, 13:03. [facility], CR, XR FEMUR RT MIN 2V, 10/19/2023, 13:03. FINDINGS: There is osteoarthritic change in right hip. There is a focal uptake in the posterior medial aspect of the left 9th rib, most likely secondary to subacute fracture. No lesions are identified in skull, sternum, clavicles, scapulae, ribs, bony pelvis, and visualized shafts of the long bones. There are foci of increased uptake in cervical, thoracic and lumbar spine most likely secondary to degenerative disc and facet disease; early metastasis to spine could be obscured by degenerative changes. Left hip total arthroplasty. No scintigraphic findings to suggest prosthesis loosening. There are foci of increased periarticular activity, most pronounced in shoulders, sternoclavicular joints bilaterally, wrists bilaterally, right hip, right ankle and both feet, compatible with degenerative/arthritic changes. IMPRESSION: 1. Probably subacute fracture of the left 9th rib. Recommend radiographic correlation. 2. Osteoarthritic change in right hip. No definitive scintigraphic findings to to explain left thigh pain. 3. Foci of increased uptake in cervical, thoracic and lumbar spine most likely degenerative in nature. If clinically indicated, please consider radiographic correlation. 4. Degenerative/arthritic changes in multiple peripheral joints. Dictated by: Josie Barnes M.D. on 12/29/2023 at 15:58 Approved by: Josie Barnes M.D. on 12/29/2023 at 16:23
== END ==
LOC: NUCM 09:43
PROVIDERS: PCP Family Medicine; Referring Provider Orthopaedic Surgery; Visit Provider Orthopaedic Surgery
DX: M25.551 Pain in right hip (principal); Z96.642 Presence of left artificial hip joint
CPT/HCPCS: 78306; A9503

== ENCOUNTER → 2025-06-05 15:29 | Outpatient (CLI) | payer MEDICARE, OTHER, SELFPAY ==
--- NOTE | 2025-06-05 15:31 | DI.MRI.S_ITS ---
PROCEDURE: MR SHOULDER RT WO CON INDICATIONS: RT Shoulder injury; bicep tendon tear TECHNIQUE: Noncontrast oblique coronal T2 fast spin echo with fat saturation, oblique sagittal T1 spin echo and T2 fast spin echo with fat saturation, axial T1 spin echo and T2 fast spin echo with fat saturation through the shoulder. COMPARISON: None. FINDINGS: Image quality: Excellent. Rotator cuff: Full-thickness cuff tear of the anterior-most fibers of the supraspinatus measuring approximately 6 mm in the anterior-posterior dimension (10/11), with torn tendon fibers retracted to the level of the glenohumeral joint. Background of mild supraspinatus and infraspinatus tendinopathy with areas of low to moderate grade interstitial tearing and articular surface fraying near the tendon insertions (for example on image 8/9). Moderate subscapularis tendinopathy without discrete tear. Sagittal images demonstrate no muscle atrophy. Bones and bursae: No bone marrow contusions or fractures. Fibrocystic changes are present at the greater tuberosity. Widening of the acromioclavicular joint with disruption of the joint capsule; edema around the cortical clavicular ligament is present, with the fibers appearing partially disrupted compatible with at least moderate grade partial tear (10/22). Mild glenohumeral chondrosis without visualized high-grade loss. Small volume subacromial/subdeltoid bursal fluid is present. Capsule and soft tissues: Mild degeneration of the glenoid labrum, most prominent at the posterior superior aspect, without acute discrete tear. The long head of the biceps tendon is anteromedially displaced out of the bicipital groove, and demonstrates moderate tendinopathy and tenosynovitis without discrete tear. IMPRESSION: 1. Acromioclavicular joint injury with disruption of the joint capsule and at least moderate grade partial tear of the coracoclavicular ligament. 2. The long head of the biceps tendon is anteromedially displaced out of the bicipital groove, and demonstrates moderate tendinopathy and tenosynovitis without discrete tear. 3. Small full thickness tear of the anterior most fibers of the supraspinatus. Mild to moderate rotator cuff tendinopathy elsewhere. Dictated by: Bev Erickson M.D. on 06/06/2025 at 13:09 Approved by: Bev Ercikson M.D. on 06/06/2025 at 13:41
== END ==
PROVIDERS: PCP Physician Assistant; Referring Provider Physician Assistant; Visit Provider Physician Assistant
DX: S43.81XA Sprain of other specified parts of right shoulder girdle, initial encounter (principal); M65.811 Other synovitis and tenosynovitis, right shoulder; M75.121 Complete rotator cuff tear or rupture of right shoulder, not specified as traumatic; X58.XXXA Exposure to other specified factors, initial encounter
CPT/HCPCS: 73221